=== PATIENT | female | born 1935 | race Caucasian/White ===

== ENCOUNTER 2016-07-16 08:06 | Inpatient (IN) | payer BC, OTHER ==
[2016-06-06 10:27] VITALS: BMI 25.0
--- NOTE | 2016-06-06 11:01 | PAT Medication Instructions ---
Service Date Jun 06, 2016. Current Home Medication List Aspirin Enteric Coated (Ecotrin Or Generic *), 81 MG PO QPM Cyclosporine (Ophth) (Restasis), 1 DROP OPB BID Diclofenac Sodium (Topical) (Voltaren 1% Top Gel), 1 DOSE TOP BID Escitalopram (Lexapro), 10 MG PO QAM Fish Oil ([place]-3), 1 CAP PO BID Ipratropium-Albuterol (Combivent Respimat), 1 PUFFS INH QID PRN for PRN Ipratropium-Albuterol (Duoneb), 1 TREATMENT INH Q6H PRN for RN Levothyroxine Sodium (Levothyroxine Sodium), 1 TAB PO QAM Metoprolol Tartrate (Lopressor) (Lopressor), 25 MG PO BID Multiple Vitamin (Multivitamin), 1 TAB PO QAM Simvastatin (Zocor), 40 MG PO HS Tolterodine Tartrate (Detrol LA), 1 CAP PO HS Medication Instructions For Your Scheduled Surgery - Hold the following medications 2 weeks prior to surgery: Fish Oil ([place]-3), 1 CAP PO BID - Hold the following medications the morning of surgery: Multiple Vitamin (Multivitamin), 1 TAB PO QAM Diclofenac Sodium (Topical) (Voltaren 1% Top Gel), 1 DOSE TOP BID - Take the following medications the morning of surgery with a sip of water OTHERWISE NOTHING TO EAT OR DRINK AFTER MIDNIGHT: Escitalopram (Lexapro), 10 MG PO QAM Metoprolol Tartrate (Lopressor) (Lopressor), 25 MG PO BID Cyclosporine (Ophth) (Restasis), 1 DROP OPB BID Levothyroxine Sodium (Levothyroxine Sodium), 1 TAB PO QAM Ipratropium-Albuterol (Combivent Respimat), 1 PUFFS INH QID PRN for PRN Ipratropium-Albuterol (Duoneb), 1 TREATMENT INH Q6H PRN for RN - Take the following medications as scheduled the night before surgery: Simvastatin (Zocor), 40 MG PO HS Aspirin Enteric Coated (Ecotrin Or Generic *), 81 MG PO QPM Tolterodine Tartrate (Detrol LA), 1 CAP PO HS Metoprolol Tartrate (Lopressor) (Lopressor), 25 MG PO BID Cyclosporine (Ophth) (Restasis), 1 DROP OPB BID Ipratropium-Albuterol (Combivent Respimat), 1 PUFFS INH QID PRN for PRN Ipratropium-Albuterol (Duoneb), 1 TREATMENT INH Q6H PRN for RN If you have any questions please call us at [phone] (Aimee Rodgers PA-C ) or [phone] or [phone]
[2016-06-06 11:25] LABS: BASO % 0.5 %; BASO ABS # 0.04 K/uL (0-0.2); COMPLETE YES; EOS % 1.8 %; HEMATOCRIT 37.6 % (37-47); IG% 0.5 %; LYMPH % 35.6 %; LYMPH ABS # 3.05 K/uL (1.2-3.4); MEAN CELL VOLUME 92.6 fL (80-100); MEAN CORPUSCULAR HEMOGLOBIN 30.5 pg (25-34); MEAN PLATELET VOLUME 9.4 fL (7.4-10.4); MONO % 11.3 %; NEUT % 50.3 %; PLATELET COUNT 329 K/uL (130-400); RED BLOOD COUNT 4.06 M/uL (4.2-5.4); WHITE BLOOD COUNT 8.57 K/uL (4.8-10.8)
[2016-06-06 11:37] LABS: INR 0.9 (0.9-1.1); PROTHROMBIN TIME (PATIENT) 10.1 SECONDS (9.0-12.0)
--- NOTE | 2016-06-06 11:44 | DIAGNOSTIC IMAGING REPORT ---
CHEST PREADMISSION(PA/LAT) CLINICAL HISTORY: Preoperative chest COMPARISON STUDY: 05/23/2016 FINDINGS: The heart is at the upper limits of normal in size. There is a large air-containing retrocardiac opacity consistent with a hiatal hernia. There is no focal pulmonary consolidation. There is no failure. There are no pleural effusions. There are few scattered chronic interstitial type opacities.[ IMPRESSION: Hiatal hernia. No acute findings. Electronically signed by: Rui Stewart M.D. 06/06/2016 11:43 AM
[2016-06-06 11:53] LABS: BUN/CREATININE RATIO 15.4 (10-20); CALCIUM 9.1 mg/dl (8.5-10.1); CREATININE 1.2 mg/dl (0.60-1.20); POTASSIUM 4.2 mmol/L (3.5-5.1)
[2016-06-06 12:28] LABS: URINE APPEARANCE CLEAR (CLEAR); URINE BILIRUBIN NEG (NEG); URINE COLOR YELLOW; URINE NITRITE NEG (NEG); URINE SPECIFIC GRAVITY 1.011 (1.000-1.030); UROBILINOGEN NEG (NEG)
[2016-06-06 12:34] LABS: MANUAL MICROSCOPIC REQUIRED? NO; REVIEW REQ? NO
--- NOTE | 2016-07-11 23:13 | HISTORY & PHYSICAL EXAMINATION ---
DATE OF ADMISSION: 07/16/2016 CHIEF COMPLAINT: Right knee pain, discomfort and instability. HISTORY OF PRESENT ILLNESS: The patient is an 80-year-old female, quite independent and lives by herself, who presents for surgical treatment of her right knee. She has got a long history of right knee pain and discomfort and describes it has just gotten worse over time. She initially responded to injections and these have become less successful over time. She has had several falls and her knee has become more valgus and unstable. Shots have become less effective and feels like her knee is going to give out and she did not actually fall and break her kneecap at one point. She would now like to proceed with surgical treatment. It is hindering her ability to maintain an independent and active lifestyle. PAST MEDICAL HISTORY: Significant for: 1. Elevated cholesterol. 2. Recent pneumonia, currently resolved. 3. Hypothyroidism. 4. Low back pain/sciatica. 5. Gastroesophageal reflux disease. 6. Hiatal hernia. PAST SURGICAL HISTORY: Includes: 1. Bilateral shoulder surgery. 2. Back surgery. 3. Cholecystectomy. 4. Hysterectomy. ALLERGIES: SULFA. CURRENT MEDICINES: Include: 1. Lexapro. 2. Restasis ophthalmic ointment. 3. Multivitamin. 4. Zostavax. 5. Fish oil. 6. Simvastatin. 7. Metoprolol. 8. Levothyroxine. 9. Tolterodine. SOCIAL HISTORY: This is an 80-year-old female. She lives by herself. Lives in [place]. Does not smoke. FAMILY HISTORY: Noncontributory. REVIEW OF SYSTEMS: Negative for diabetes, neurologic problems, vascular problems, bleeding disorders. Denies any chest pain or shortness of breath. No history of DVT or PE. She does have a history of recurrent urinary tract infections but her current urinalysis is negative. PHYSICAL EXAMINATION: GENERAL: Reveals a healthy, pleasant, thin elderly female. She looks younger than her stated age. HEENT: Benign. NECK: Supple, no lymphadenopathy. LUNGS: Clear to auscultation. HEART: Has a regular rate and rhythm. ABDOMEN: Soft, nontender, nondistended. EXTREMITIES: Grossly neurovascularly intact except as follows: Examination of the right knee reveals the patient walks independently. She does limp on the right side. When she weight bears, it goes into significant valgus. Range of motion is 5 degrees short of full extension to 120 degrees of flexion. She has a good straight leg raise. No pain with hip motion. X-RAYS: X-rays of the right knee were reviewed, showed advanced right knee DJD. She has complete loss of her lateral joint space. She has a significant valgus deformity. ASSESSMENT: An 80-year-old female with advanced right knee degenerative joint disease with valgus aligned knee and has developed progressive arthritic change and instability over time. It is not only painful but unstable. She would like to have her knee replaced. PLAN: We are going to take her to the operating room and do right total knee replacement. The risks and benefits of this procedure were explained to the patient including but not limited to DVT, PE, , infection, neurological injury, vascular injury, bleeding problem, pain, limited range of motion, stiffness, failure to relieve her symptoms, incomplete relief of symptoms, need for further surgery in the future, fracture, leg length inequality, nerve palsy, etc. The patient understands and desires to proceed, informed consent was obtained. Undoubtedly, we are going to have to do a lateral release to straighten her knee out. This does increase her risk of peroneal nerve palsy. It is very possible we might need to put a constrained insert in due to her MCL laxity. As far as discharge plans, she is planning to be discharged to [facility] as long as she qualifies. She will certainly need to go somewhere for rehab. She will take her metoprolol the morning of surgery along with the Synthroid.
[~2016-07-16] VITALS: Ht 157.5 cm; Wt 62.2 kg
[2016-07-16] VITALS (9 sets, daily range): BP systolic 105–146; BP diastolic 65–78; PULSE 64–77; TEMP 36.3–36.6; O2SAT 92–100; Ht 157.5 cm; Wt 62.2 kg
[~2016-07-16 08:06] MED LIST: ACETAMINOPHEN 500 MG TAB PO SCH; ASPEC81 PO; BUPIVACAINE 0.25% 30 ML VIAL ONE; BUPIVACAINE 0.5 % 5 MG/1 ML PF 10ML VIAL ONE; BUPIVACAINE LIPOSOME 266 MG, BUPIVACAINE/EPINEPHRINE INJ 50 ML, SODIUM CHLORIDE 0.9% PF... INFIL SCH; CEFAZOLIN 2000 MG/60 ML D5W 60 ML IV SCH; CYCL0.052 OPB; DICL1GEL12 TOP; DTRSR/2 PO; ESCI10TA17 PO; FAMOTIDINE 20 MG TAB PO SCH; FISHOIL PO; GABAPENTIN 300 MG CAP PO SCH; IPRA1AER2 INH; IPRASOL4 INH; LACTATED RINGER'S 1000ML 1,000 ML IV SCH; LACTATED RINGER'S 1000ML IV SCH; LEVO88TA3 PO; METO25TA56 PO; METOCLOPRAMIDE HCL 10 MG TAB PO SCH; MULTTAB58 PO; SCOPOLAMINE 1.5 MG TDSY TD SCH; SIMV40TA2 PO; TRANEXAMIC ACID INJ 1,000 MG in SODIUM CHLORIDE 0.9% 100ML 100 ML IV SCH
--- NOTE | 2016-07-16 09:12 | History & Physical Bridge Note ---
H&P Re-Evaluation Bridge Note: I have examined the patient, reviewed the History & Physical and in the interval since the performance of the History & Physical I have noted the following changes of clinical significance: No changes noted
[2016-07-16] MEDS ORDERED: ATROPINE SULFATE 0.1 MG/ML 5ML SYR IV PRN (10:45)
[2016-07-16] MEDS ORDERED: FENTANYL CITRATE INJ 50 MCG/1 ML 2 ML VIAL IV PRN (10:45)
[2016-07-16] MEDS ORDERED: LABETALOL HCL IV 5 MG/ML 20ML IV PRN (10:45)
[2016-07-16] MEDS ORDERED: ONDANSETRON INJ 2 MG/ML 2 ML VIAL IV PRN (10:45)
[2016-07-16] MEDS ORDERED: EpHEDrine SULFATE INJ 50 MG/ML AMP IV PRN (10:45)
[2016-07-16] MEDS ORDERED: MEPERIDINE HCL 25 MG/ML CARP IV PRN (10:45)
[2016-07-16] MEDS ORDERED: HYDROmorphone INJ 1 MG/ML SYR IV PRN (10:45)
[2016-07-16] MEDS ORDERED: MIDAZOLAM HCL 1 MG/ML 2ML VIAL ONE (11:37)
[2016-07-16] MEDS ORDERED: EpHEDrine SULFATE INJ 50 MG/ML AMP ONE (11:50)
[2016-07-16] MEDS ORDERED: LIDOCAINE HCL 2% 2 ML VIAL (20MG/ML) ONE (12:46)
[2016-07-16] MEDS ORDERED: PROPOFOL IV EMULSION 10 MG/ML 20 ML VIAL IV ONE (12:46)
[2016-07-16] MEDS ORDERED: BACITRACIN 50000 UNIT VIAL IR ONE (13:03)
--- NOTE | 2016-07-16 13:44 | [facility] Post Operative Brief Note ---
Immediate Operative Summary Operative Date Jul 16, 2016. Pre-Operative Diagnosis Right knee degenerative joint disease Post-Operative Diagnosis Right knee degenerative joint disease Procedure(s) Performed Right total knee arthroplasty Surgeon Dr. Luiz Briceño Lead Generation Specialist Surgeon(s) Waqar Vergara PA-C Estimated Blood Loss 50 cc Findings Right Knee DJD Fluids (cc crystalloids) 800 cc Specimens A. Right knee bone and tissue Drains None Anesthesia Spinal Complication(s) None Disposition Recovery Room / PACU
[2016-07-16] MEDS ORDERED: MoRPHine SULFATE 2 MG/ML CARP IV PRN (13:45)
[2016-07-16] MEDS ORDERED: MAGNESIUM HYDROXIDE SUSP 30 ML UDC PO PRN (13:45)
[2016-07-16] MEDS ORDERED: METOCLOPRAMIDE HCL INJ 5 MG/ML 2 ML VIAL IV PRN (13:45)
[2016-07-16] MEDS ORDERED: ALUMINUM/MAGNESIUM/SIMETH (MAALOX MAX) 30 ML UDC PO PRN (13:45)
[2016-07-16] MEDS ORDERED: ZOLPIDEM TARTRATE 5 MG TAB PO PRN (13:45)
[2016-07-16] MEDS ORDERED: BISACODYL 10 MG SUPP PR PRN (13:45)
[2016-07-16] MEDS ORDERED: DiphenhydrAMINE HCL 50 MG/ML VIAL IV PRN (13:45)
--- NOTE | 2016-07-16 14:21 | Anesthesiology Progress Note ---
Anesthesia Post Op Note Date & Time Jul 16, 2016 at 14:21 Vital Signs Pain Intensity: 0 Vital Signs Past 12 Hours Date Time Temp Pulse Resp B/P Pulse Ox O2 Delivery O2 Flow Rate FiO2 07/16/16 14:15 76 19 121/51 97 Nasal Cannula 2 07/16/16 14:05 76 16 123/53 97 Nasal Cannula 2 07/16/16 13:55 36.7 81 20 118/47 97 Nasal Cannula 2 07/16/16 08:54 36.5 64 18 146/68 96 Room Air Notes Mental Status: alert / awake / arousable, participated in evaluation Pt Amnestic to Procedure: Yes Nausea / Vomiting: adequately controlled Pain: adequately controlled Airway Patency, RR, SpO2: stable & adequate BP & HR: stable & adequate Hydration State: stable & adequate Neuraxial Anesthesia: was administered, sensory block is resolving Anesthetic Complications: no major complications apparent
--- NOTE | 2016-07-16 14:38 | DIAGNOSTIC IMAGING REPORT ---
RIGHT KNEE 1 OR 2 VIEWS ROUTINE CLINICAL HISTORY: AP/LATERAL IN PACU RIGHT KNEE Right postoperative evaluation COMPARISON: None. DISCUSSION: Status post total right knee replacement. Good contact between prosthetic and underlying bone. Expected soft tissue postoperative change. IMPRESSION: Anatomic alignment status post total right knee replacement. Electronically signed by: Hernando Rojas M.D. 07/16/2016 2:37 PM Dictated Date/Time: 07/16/2016 2:36 PM
--- NOTE | 2016-07-16 15:46 | OPERATIVE REPORT ---
DATE OF OPERATION: 07/16/2016 PREOPERATIVE DIAGNOSIS: Right knee degenerative joint disease. POSTOPERATIVE DIAGNOSIS: Same. PROCEDURE PERFORMED: Right cemented posterior stabilized total knee arthroplasty. SURGEON: Luiz Briceño M.D. HEREDITARY CANCER PROGRAM COORDINATOR: Waqar Vergara PA-C. COMPLICATIONS: None. ESTIMATED BLOOD LOSS: 50 mL. FLUID REPLACEMENT: 800 mL crystalloid fluid replacement. TOURNIQUET TIME: 66 minutes at 300 mmHg. ANESTHESIA: Spinal with adductor canal block. DRAINS: None. SPECIMENS: Right knee sent for pathology. OPERATIVE INDICATIONS: The patient is an 80-year-old female who has had a long history of right knee pain, discomfort and progressive deformity. She has been through extensive conservative treatment over the past 10 years. She failed this over time. She had more and more trouble getting around. Her knee has become unstable due to the valgus nature. The patient elected to proceed with total knee arthroplasty. Of note, the patient did report a question of metal allergy/nickel allergy, so we elected to use the Morales \T\ Nephew zirconium total knee arthroplasty. OPERATIVE FINDINGS: Operative findings revealed advanced right knee DJD. She had grade 3 [id number] disease in all 3 compartments, most severe in the lateral side. She had eburnation of the lateral femoral condyle. She had malrotated distal femur. She had a dysplastic lateral femoral condyle. She had severe eburnation of the lateral tibial plateau. OPERATIVE IMPLANTS: Operative implants consisted of: 1. Morales [employer] Nephew Journey II Zirconium size 6 posterior stabilized femoral component. 2. Morales [employer] Nephew size 4 tibial tray. 3. A 12 mm posterior stabilized polyethylene insert. 4. A 32 x 9 all poly patella. OPERATIVE PROCEDURE: The patient taken to the operating room, identified and placed on the operating table in supine position. All contact areas were appropriately padded. IV antibiotics were provided by the anesthesia team. A Chin catheter was placed in sterile fashion. A right thigh tourniquet was then placed. The right lower extremity was then prepped and draped in usual sterile fashion. The right leg was elevated and exsanguinated with Esmarch and tourniquet was placed at 300 mmHg. An anterior approach to the right knee was then performed through a longitudinal incision centered over the patella. Sharp dissection was carried through the subcutaneous tissues down to the level of the extensor mechanism. A medial parapatellar arthrotomy incision was made. Some subperiosteal dissection was carried out medially. The fat pad was resected from beneath the patellar tendon. The lateral patellofemoral ligament was released. The patella was everted and the knee was flexed. The osteophytes were taken off the distal femur. Her ACL was chronically absent. Her tibia was subluxated anteriorly. The external tibial alignment jig was then placed in the anterior face of the tibia and adjusted 8 mm medially. Proximal tibial cut was made to remove about 2-3 mm of bone from the medial side. Tibia was sized to a size 4. Attention was then drawn to the femur. The distal femur was entered with a sharp drill bit. Intramedullary canal was suctioned. A right 5 degree valgus cutting guide was placed. Distal femoral cutting block was pinned in place. We did eventually adjust the distal femoral cutting block to take an additional 4 mm off the distal femur as it was not taking hardly any bone off the lateral femoral condyle and cut to the base of the intercondylar notch area. Distal femoral cut was made. I brought the knee out in extension. I did do just a little bit pie crusting of the IT band and the posterolateral capsule, taking great care to protect the peroneal nerve at all times. Her lateral side was not excessively tight. The knee was then flexed. The femur was then sized to a size 6. We did downsize this slightly. The AP cutting block was pinned parallel to the epicondylar axis, which was 6 degrees of external rotation. The anterior cut, anterior cord cut, posterior cut, posterior chamfer cut, anterior chamfer cuts were then made. The knee was flexed. The remnants of the medial and lateral meniscus were excised. The osteophytes were taken off the posterior aspect of the femur. A trial femoral component was then placed. The box was created for the box of the femoral component. Trochlear component was placed. Tibial tray was pinned in maximum external rotation and the punch was used for the tibial tray. We then trialed the knee and the 12 mm insert fit most appropriately. Attention was then drawn to the patella. The patella was cleaned of all soft tissues. Patellar thickness measured 24 mm and was cut down to about 15. I wanted to leave this a little thick as her bone was pretty soft. It was sized to a size 32 patella. The lug holes were drilled for a 32 patella. Lateral osteophyte was removed. Patella button was placed. Knee was taken through range of motion and patella tracked nicely with no thumbs test. Attention was then drawn toward placement of the permanent components. All trial components were removed. A bone plug was placed in the distal femur to limit blood loss. A double batch of Palacos G cement was mixed. A right size 6 posterior stabilized femoral component was then placed followed by a size 4 tibial tray, 12 mm posterior stabilized polyethylene insert, and a 32/9 all poly patella. The knee was brought out into full extension until cement hardened. A final cement check was then performed. The pericapsular tissues were injected 100 mL of a combination of 20 mL of Exparel, 30 mL of normal saline, 50 mL of 0.25% Marcaine with epinephrine. The patient did receive 1 gram of tranexamic acid. The tourniquet was then let down for final tourniquet time of 66 minutes. Hemostasis was assured with use of electrocautery. The wound was once again irrigated. The extensor mechanism was then closed with a combination of #1 PDS suture and #1 Vicryl suture in a [id number] fashion. Extensor mechanism was checked and found to be intact. Subcutaneous tissues were then closed with 2-0 Dexon suture in a buried interrupted fashion. Skin was closed skin bautista. Leg was then cleaned and dried and a sterile dressing with Xeroform, 4 x 4, sterile cast padding and Yuri bandage were applied. The patient then transferred to the recovery room in stable condition. The patient tolerated the procedure well with no complications. All needle and sponge counts were correct at the end of the operation. I attest to the content of the Intraoperative Record and any orders documented therein. Any exceptions are noted below. MTDD
--- NOTE | 2016-07-16 15:48 | Medical Consult ---
Consultation Date of Consultation: Jul 16, 2016. Attending Physician: Luiz Briceño M.D. Reason for Consultation: Postoperative medical management History of Present Illness The patient is an 80-year-old female who underwent right total knee arthroplasty by Dr. Briceño earlier in the day. Seen postoperatively she has no complaints. Her pain is adequately managed, and she does feel she's ready to eat. Past Medical/Surgical History Medical Problems: (1) Failure of outpatient treatment Status: Acute Family History Patient reports no known family medical history. Social History Smoking Status: Never Smoker Smokeless Tobacco Use: No Alcohol Use: none Drug Use: none Marital Status: Housing Status: lives alone Occupation Status: retired Allergies Coded Allergies: Sulfa Antibiotics (Verified Allergy, Unknown, UNKNOWN, 07/16/16) Current Inpatient Medications Current Inpatient Medications Medications (Trade) Dose Ordered Sig/Michelle Route Start Time Stop Time Status Last Admin Dose Admin Lactated Ringer's 1,000 ml @ 60 mls/hr [id number] IV 07/16/16 06:00 07/16/16 22:39 07/16/16 09:25 60 MLS/HR Cefazolin Sodium (Ancef 2000mg/60 ml D5W) 60 ml @ 100 mls/hr PREOP IV 07/16/16 06:00 07/16/16 18:00 07/16/16 11:59 100 MLS/HR Acetaminophen 1000 mg 1,000 mg PREOP PO 07/16/16 06:00 07/16/16 18:00 07/16/16 09:10 1,000 MG Bupivacaine Liposome/ Bupivacaine HCl/ Epinephrine Bitart/Sodium Chloride/Syringe (Exparel/ BUPIVACAINE/ EPINEPHRINE 0.25% Inj/Sodium Chloride 0.9% Pf Inj/Syringe) 100 ml @ 0 mls/hr 06 INFIL 07/16/16 06:00 07/16/16 18:00 07/16/16 13:03 100 MLS/HR Famotidine (Pepcid Tab) 20 mg PREOP PO 07/16/16 06:00 07/16/16 18:00 07/16/16 09:10 20 MG Gabapentin (Neurontin Cap) 300 mg PREOP PO 07/16/16 06:00 07/16/16 18:00 07/16/16 09:09 300 MG Metoclopramide HCl (Reglan Tab) 10 mg PREOP PO 07/16/16 06:00 07/16/16 18:00 07/16/16 09:10 10 MG Miscellaneous (Remove Transderm-Scop Patch) 1 ea Q72H N/A 07/19/16 06:00 07/19/16 06:01 Miscellaneous Information 1 ea 1 ea QS N/A 07/16/16 16:00 07/18/16 05:59 Tranexamic Acid 1000 mg/Sodium Chloride 110 ml @ 660 mls/hr TODAY@0630 IV 07/16/16 06:30 07/16/16 18:00 Lactated Ringer's (Lr 1000ml) 1,000 ml @ 15 mls/hr Q24H IV 07/16/16 06:00 07/17/16 05:59 Fentanyl Citrate (Fentanyl Inj) 50 mcg Q5M PRN IV 07/16/16 10:45 07/16/16 15:45 Hydromorphone HCl (Dilaudid Inj) 0.5 mg Q5M PRN IV 07/16/16 10:45 07/16/16 15:45 Meperidine HCl (Demerol Inj) 25 mg Q5M PRN IV 07/16/16 10:45 07/16/16 15:45 Ondansetron HCl (Zofran Inj) 4 mg ONE PRN IV 07/16/16 10:45 07/16/16 15:45 Labetalol HCl (Normodyne IV) 5 mg Q5M PRN IV 07/16/16 10:45 07/16/16 15:45 Ephedrine Sulfate (EpHEDrine SULFATE INJ) 5 mg Q5M PRN IV 07/16/16 10:45 07/16/16 15:45 Atropine Sulfate 0.5 mg 0.5 mg Q1M PRN IV 07/16/16 10:45 07/16/16 15:45 Potassium Chloride/Dextrose/ Sod Cl 1,000 ml @ 100 mls/hr Q10H IV 07/16/16 15:00 07/17/16 14:59 Cefazolin Sodium/ Dextrose (Ancef Iv/D5 50ml) 55 ml @ 100 mls/hr Q8H IV 07/16/16 20:00 07/17/16 04:32 Morphine Sulfate (MoRPHine SULFATE INJ) 2 mg Q1H PRN IV 07/16/16 13:45 07/30/16 13:44 Acetaminophen (Tylenol Tab) 1,000 mg Q8H PO 07/16/16 18:00 08/15/16 17:59 Magnesium Hydroxide (Milk Of Magnesia Susp) 30 ml Q6H PRN PO 07/16/16 13:45 08/15/16 13:44 Bisacodyl (Dulcolax Supp) 10 mg DAILY PRN MS 07/16/16 13:45 08/15/16 13:44 Docusate Sodium (coLACE CAP) 100 mg BID PO 07/16/16 21:00 08/15/16 20:59 Diphenhydramine HCl (Benadryl Cap) 25 mg Q8H PRN PO 07/16/16 13:45 08/15/16 13:44 Diphenhydramine HCl (Benadryl Inj) 25 mg Q8H PRN IV 07/16/16 13:45 08/15/16 13:44 Al Hydrox/Mg Hydrox/Simethicone (Maalox Max Susp) 15 ml Q4H PRN PO 07/16/16 13:45 08/15/16 13:44 Zolpidem Tartrate (Ambien Tab) 5 mg HSZ PRN PO 07/16/16 13:45 08/15/16 13:44 Multivitamins (Multivitamin Tab) 1 tab QAM PO 07/17/16 09:00 08/16/16 08:59 Ondansetron HCl (Zofran Inj) 4 mg Q6H PRN IV 07/16/16 13:45 08/15/16 13:44 Metoclopramide HCl (Reglan Inj) 10 mg Q6H PRN IV 07/16/16 13:45 08/15/16 13:44 Ferrous Gluconate (Ferrous Gluconate Tab) 324 mg TIDM PO 07/16/16 17:45 08/15/16 17:59 Pantoprazole Sodium (Protonix Tab) 40 mg QAM PO 07/17/16 09:00 08/16/16 08:59 Aspirin (Ecotrin Tab) 325 mg BID PO 07/16/16 21:00 08/15/16 20:59 Tramadol HCl 1 tablet for pain rating... Q4H PRN PO 07/16/16 13:45 08/15/16 13:44 Tranexamic Acid/ Sodium Chloride (Cyklokapron Inj/ Nss 100ml) 110 ml @ 660 mls/hr Q6H IV 07/16/16 20:00 07/16/16 20:09 Ketorolac Tromethamine (Toradol Inj) 15 mg Q6H IV. 07/16/16 16:00 07/18/16 15:59 Escitalopram Oxalate (Lexapro Tab) 10 mg QAM PO 07/17/16 09:00 08/16/16 08:59 Levothyroxine Sodium (Synthroid Tab) 88 mcg DAILYBB PO 07/17/16 06:00 08/16/16 05:59 Metoprolol Tartrate (Lopressor Tab) 25 mg BID PO 07/16/16 21:00 08/15/16 20:59 Simvastatin (Zocor Tab) 40 mg HS PO 07/16/16 21:00 08/15/16 20:59 Tolterodine Tartrate (Detrol LA Cap) 2 mg HS PO 07/16/16 21:00 08/15/16 20:59 Miscellaneous Information (Order Awaiting Action) 1 ea QS N/A 07/16/16 16:00 08/15/16 15:59 Review of Systems The patient denies chest pain, palpitations, shortness of breath, cough, vision change, hearing change, sore throat, fevers, chills, sweats, nausea, vomiting, abdominal pain, pelvic pain, blood in urine or stool, dysuria, urinary frequency or urgency, lightheadedness, dizziness, headache, memory loss , rash, night sweats, or allergy symptoms. The review of systems is otherwise negative other than for that already noted above, and at least 10 systems have been reviewed. Physical Exam Date Time Temp Pulse Resp B/P Pulse Ox O2 Delivery O2 Flow Rate FiO2 07/16/16 15:34 36.5 66 16 123/78 100 Nasal Cannula 2.0 07/16/16 15:05 36.5 69 16 114/74 98 Nasal Cannula 2.0 07/16/16 14:35 92 Nasal Cannula 2.0 07/16/16 14:35 36.6 77 18 110/67 92 Nasal Cannula 2.0 07/16/16 14:35 Nasal Cannula 2.0 07/16/16 14:25 37.3 76 15 118/50 97 Nasal Cannula 2 07/16/16 14:15 76 19 121/51 97 Nasal Cannula 2 07/16/16 14:05 76 16 123/53 97 Nasal Cannula 2 07/16/16 13:55 36.7 81 20 118/47 97 Nasal Cannula 2 07/16/16 08:54 36.5 64 18 146/68 96 Room Air The patient is awake, well-developed and adequately nourished, alert and oriented 3, normocephalic and atraumatic, lying in bed and in no acute distress. HEENT--PERRL, EOMI, mucous membranes and oropharynx moist. Neck--supple, no JVD or bruits, thyroid normal, trachea midline, no adenopathy. Heart--normal S1 and S2, no extra beats, no murmurs, rubs or gallops. Lungs--clear bilaterally with good air movement, no respiratory distress, no accessory muscle use. Abdomen--normal bowel sounds and soft, nontender and nondistended, no hernias or masses, no organomegaly. Extremities--no cyanosis, clubbing or edema. There are good distal pulses b/l. Dermatologic--normal skin turgor, normal color, warm and dry, no abnormal lymph nodes, no rash. Neurologic--cranial nerves II through XII grossly intact, motor and sensory examination normal. Rheumatologic--right knee wrapped. Psychiatric--normal affect. Assessment & Plan Status post right total knee arthroplasty--medically stable. Hypertension--continue metoprolol tartrate 25 mg by mouth twice a day with hold parameters, enteric-coated aspirin 81 mg by mouth daily. Hypothyroidism--continue levothyroxine sodium 80 g by mouth daily. Hypercholesterolemia--continue simvastatin 40 mg by mouth at bedtime. Bladder spasm--continue Detrol LA 2 mg by mouth at bedtime. Depression--continue Lexapro 10 mg by mouth every morning. Dry eye--continue Restasis 1 drop OPB twice a day.
[2016-07-16] MEDS: KETOROLAC TROMETHAMINE 15 MG/ML VIAL IV. SCH ×2 (15:59→22:17)
[2016-07-16] MEDS: RESTASIS-ORDER AWAITING ACTION SCH (16:00)
[2016-07-16] MEDS: CHECK SCOPOLAMINE PATCH PLACEMENT SCH (16:00)
[2016-07-16] MEDS: D5W AND 1/2NSS + 20MEQ KCL 1,000 ML IV SCH (16:01)
[2016-07-16] MEDS: FERROUS GLUCONATE 324 MG TAB PO SCH (17:46)
[2016-07-16] MEDS: ACETAMINOPHEN 500 MG TAB PO SCH (17:47)
--- NOTE | 2016-07-16 18:38 | PROGRESS NOTE ---
DATE: 07/16/2016 SUBJECTIVE: An 80-year-old white female postop from a right knee replacement. She is doing well. She does not have any pain yet. No chest pain or shortness of breath. Not feeling dizzy or lightheaded. No nausea. OBJECTIVE: VITAL SIGNS: Temperature 36.6. Vital signs stable. GENERAL: Reveals a pleasant, elderly female. She is sitting up in bed and looks comfortable. She is talking with her family. LUNGS: Clear to auscultation. HEART: Regular rate and rhythm. ABDOMEN: Soft, nontender, nondistended. EXTREMITIES: Grossly neurovascularly intact except as follows: Examination of right lower extremity reveals the leg to be well aligned. She can dorsiflex and plantarflex her foot appropriately. She is neurologically intact. She has got brisk refill. X-RAYS: X-rays of the right knee from recovery room were reviewed. It shows a cemented posterior stabilized total knee arthroplasty. Components looked to be in good position. No signs of problems. ASSESSMENT: An 80-year-old female postop from a right knee replacement, doing well. Her pain is controlled. She is neurologically intact. PLAN: 1. DVT prophylaxis including thigh-high TEDs, SCDs, and aspirin twice a day. 2. PT/OT. Weightbearing as tolerated. Right total knee protocol. 3. Pain control. Doing well with current pain regimen. We are going to try and limit narcotics to avoid confusion. 4. IV antibiotics x 24 hours. 5. Disposition: She is hoping to be discharged to [facility] for a brief rehab stay once medically stable.
[2016-07-16] MEDS: CEFAZOLIN IV 1,000 MG in DEXTROSE 5% 50ML 50 ML IV SCH (19:36)
[2016-07-16] MEDS ORDERED: TRANEXAMIC ACID INJ 1,000 MG in SODIUM CHLORIDE 0.9% 100ML 100 ML IV SCH (20:00)
[2016-07-16] MEDS: ASPIRIN 325 MG ECTAB PO SCH (21:14)
[2016-07-16] MEDS: DOCUSATE SODIUM 100 MG CAP PO SCH (21:14)
[2016-07-16] MEDS: TOLTERODINE TARTRATE LA 2 MG CAPCR PO SCH (21:15)
[2016-07-16] MEDS: METOPROLOL TARTRATE 25 MG TAB PO SCH (21:15)
[2016-07-16] MEDS: SIMVASTATIN 40 MG TAB PO SCH (21:15)
[2016-07-17] MEDS: CHECK SCOPOLAMINE PATCH PLACEMENT SCH ×3 (00:28→16:00)
[2016-07-17] MEDS: D5W AND 1/2NSS + 20MEQ KCL 1,000 ML IV SCH ×2 (02:18→10:53)
[2016-07-17] MEDS: ACETAMINOPHEN 500 MG TAB PO SCH ×3 (02:18→17:37)
[2016-07-17 03:23] VITALS: BP 107/67; PULSE 65; TEMP 36.5; O2SAT 96
[2016-07-17] MEDS: KETOROLAC TROMETHAMINE 15 MG/ML VIAL IV. SCH (04:29)
[2016-07-17] MEDS: CEFAZOLIN IV 1,000 MG in DEXTROSE 5% 50ML 50 ML IV SCH (04:29)
[2016-07-17 05:48] LABS: HEMATOCRIT 31.2 % (37-47); MEAN CELL VOLUME 91.5 fL (80-100); MEAN CORPUSCULAR HEMOGLOBIN 30.2 pg (25-34); MEAN PLATELET VOLUME 9.5 fL (7.4-10.4); PLATELET COUNT 208 K/uL (130-400); RED BLOOD COUNT 3.41 M/uL (4.2-5.4); WHITE BLOOD COUNT 7.29 K/uL (4.8-10.8)
[2016-07-17] MEDS: LEVOTHYROXINE 88 MCG TAB PO SCH (06:01)
[2016-07-17 06:15] LABS: BUN/CREATININE RATIO 16.7 (10-20); CALCIUM 7.6 mg/dl (8.5-10.1); CREATININE 1.5 mg/dl (0.60-1.20); POTASSIUM 4.2 mmol/L (3.5-5.1)
[2016-07-17 07:21] VITALS: BP 113/64; PULSE 67; TEMP 36.5; O2SAT 95
[2016-07-17] MEDS: RESTASIS-ORDER AWAITING ACTION SCH ×3 (08:00→16:00)
[2016-07-17] MEDS: TRAMADOL HCL 50 MG TAB PO PRN ×4 (08:32→20:49)
[2016-07-17] MEDS: MULTIVITAMIN TAB PO SCH (08:33)
[2016-07-17] MEDS: FERROUS GLUCONATE 324 MG TAB PO SCH ×3 (08:34→16:47)
[2016-07-17] MEDS: ASPIRIN 325 MG ECTAB PO SCH ×2 (08:34→20:48)
[2016-07-17] MEDS: ESCITALOPRAM OXALATE 10 MG TAB PO SCH (08:34)
[2016-07-17] MEDS: DOCUSATE SODIUM 100 MG CAP PO SCH ×2 (08:34→20:48)
[2016-07-17] MEDS: PANTOprazole SOD 40 MG TAB PO SCH (08:34)
[2016-07-17] MEDS: METOPROLOL TARTRATE 25 MG TAB PO SCH ×2 (08:35→20:49)
[2016-07-17] MEDS: SODIUM CHLORIDE 0.9% 1000ML 1,000 ML IV SCH ×2 (08:41→20:49)
[2016-07-17] MEDS ORDERED: MULTIVITAMIN TAB PO SCH (09:00)
--- NOTE | 2016-07-17 11:28 | Hospitalist Progress Note ---
Hospitalist Progress Note Date of Service Jul 17, 2016. (Brunilda Arroyo PA-C) Subjective Pt evaluation today including: conversation w/ patient, physical exam, chart review, lab review, review of inpatient medication list Patient reports mild to moderate pain in the knee. Has no other complaints. Urinating without difficulty or pain. Has not yet passed gas. No bowel movements yet. No chest pain, shortness of breath, heart palpitations or dizziness. Additional Comments: 6 system review negative. Please see pertinent positives in the history of present illness section. (Brunilda Arroyo PA-C) Objective Vital Signs Date Time Temp Pulse Resp B/P Pulse Ox O2 Delivery O2 Flow Rate FiO2 07/17/16 07:21 36.5 67 16 113/64 95 Room Air 07/17/16 07:15 Room Air 07/17/16 03:23 36.5 65 16 107/67 96 Room Air 07/17/16 00:30 Room Air 07/16/16 23:28 36.5 69 16 110/67 95 Room Air 07/16/16 19:00 36.3 70 16 107/66 98 Room Air 07/16/16 17:34 69 16 105/65 96 Room Air 07/16/16 16:35 36.6 71 16 111/68 97 Nasal Cannula 2.0 07/16/16 15:34 36.5 66 16 123/78 100 Nasal Cannula 2.0 07/16/16 15:30 100 Nasal Cannula 2.0 07/16/16 15:05 36.5 69 16 114/74 98 Nasal Cannula 2.0 07/16/16 14:35 92 Nasal Cannula 2.0 07/16/16 14:35 36.6 77 18 110/67 92 Nasal Cannula 2.0 07/16/16 14:35 Nasal Cannula 2.0 07/16/16 14:25 37.3 76 15 118/50 97 Nasal Cannula 2 07/16/16 14:15 76 19 121/51 97 Nasal Cannula 2 07/16/16 14:05 76 16 123/53 97 Nasal Cannula 2 07/16/16 13:55 36.7 81 20 118/47 97 Nasal Cannula 2 (Brunilda Arroyo PA-C) Physical Exam General Appearance: no apparent distress Eyes: EOMI Neck: no JVD Respiratory/Chest: lungs clear Cardiovascular: regular rate, rhythm Abdomen: normal bowel sounds, non tender, soft Extremities: no pedal edema (no edema noted in the left lower extremity. Right lower extremity bandaged.) Neurologic/Psychiatric: oriented x 3, + pertinent finding (left facial droop noted) Skin: warm/dry (Brunilda Arroyo PA-C) Laboratory Results Last 24 Hours Test 07/17/16 05:24 White Blood Count 7.29 K/uL Red Blood Count 3.41 M/uL Hemoglobin 10.3 g/dL Hematocrit 31.2 % Mean Corpuscular Volume 91.5 fL Mean Corpuscular Hemoglobin 30.2 pg Mean Corpuscular Hemoglobin Concent 33.0 g/dl RDW Standard Deviation 49.1 fL RDW Coefficient of Variation 14.7 % Platelet Count 208 K/uL Mean Platelet Volume 9.5 fL Sodium Level 143 mmol/L Potassium Level 4.2 mmol/L Chloride Level 109 mmol/L Carbon Dioxide Level 25 mmol/L Anion Gap 9.0 mmol/L Blood Urea Nitrogen 25 mg/dl Creatinine 1.50 mg/dl Est Creatinine Clear Calc Drug Dose 25.1 ml/min Estimated GFR () 37.2 Estimated GFR (Non- 32.1 BUN/Creatinine Ratio 16.7 Random Glucose 107 mg/dl Calcium Level 7.6 mg/dl (Brunilda Arroyo PA-C) Assessment and Plan 80-year-old female status post right TKA-postop day #1 -pain management, DVT prophylaxis, PT per primary team Mild acute renal insufficiency-likely secondary to dehydration -change IVF to NS @ 80 cc/hr x 1.5 liters -check UA -PRP in am Hypertension -Continue Lopressor 25 mg twice daily Urinary incontinence -Continue Detrol 2 mg at night Hyperlipidemia -Continue Zocor 40 mg at night Hypothyroidism -Continue Synthroid 88 g daily Depression -Continue Lexapro 10 mg in the morning History of Velásquez's palsy-facial droop noted. Chronic Thank you for allowing us to participate in Ms. Heck's care. (Brunilda Arroyo PA-C) Patient seen and examined. Case was discussed with Brunilda Arroyo PA-C. I agree with her note above. Patient has no complaints. On exam, lungs clear and heart regular. Cr up slightly, possibly from NSAID or very mild hypovolemia. Will hydrate overnight and recheck BMP in morning. (Ang Coleman MD)
[2016-07-17 11:50] VITALS: BP 121/76; PULSE 72; TEMP 36.5; O2SAT 96
[2016-07-17] MEDS ORDERED: ACET-1138 PO (11:55)
[2016-07-17] MEDS ORDERED: ASPEC325 PO (11:55)
[2016-07-17] MEDS ORDERED: FRRG PO (11:55)
[2016-07-17] MEDS ORDERED: ULT50X PO (11:55)
--- NOTE | 2016-07-17 11:57 | Discharge Instructions ---
Discharge Instructions Admission Reason for Admission: Right Knee Osteoarthritis Discharge Discharge Diagnosis / Problem: Right Knee Replacement Discharge Goals Goal(s): Decrease discomfort, Improve function, Increase independence, Improve disease control, Therapeutic intervention Activity Recommendations Activity Level: Assistance Required Therapies: Physical Therapy, Occupational Therapy Weightbearing Status: Right weightbearing . Additional Information Patient informed of condition: Yes Advance Directives: No DNR: No Level of Care: Acute Rehab Communicable Disease: No Prognosis: Improving Instructions / Follow-Up Instructions / Follow-Up ACTIVITY RECOMMENDATIONS: Physical Therapy: * You will go to physical therapy three times each week for four to six weeks after your surgery in order to regain your knee range of motion and to retrain your knee to work properly. * It is just as important to make sure you are getting your knee perfectly straight as it is to regain your knee bend. * Taking a pain pill an hour before therapy can help you have a more productive and comfortable therapy session. Home Exercise: * You were shown a series of exercises (heel props, heel slides, etc.) in the hospital. Do these exercises three to four times each day including the exercises you were shown in physical therapy. Walking: * Get up and walk several times each day. For the first four weeks, try not to stand or walk for more than one hour at a time. If you do stand or walk for more than one hour, you will not hurt anything, but your knee and leg will likely swell. * As you feel comfortable, you may change from the walker or crutches to a cane and then to independent walking. MEDICATIONS: New Medicine: * You will likely be taking one or more of these medications: 1. Tramadol - A quick and shorter-acting pain medication. Take one to two tablets every four to six hours to lessen your pain. 2. Iron Sulfate - Take three times each day for the month after surgery to help you replace the blood lost during surgery. 3. Aspirin - Thins your blood to lessen the chance of forming a blood clot. * The most common side effects of pain medicine and iron are nausea and constipation. If nausea or constipation is too much of a problem or if you have any questions about your new medicines or doses, call [facility] at . We will try to help you manage these issues. VERY IMPORTANT TO READ AND REVIEW" Pain: * The immediate post-operative period after knee replacement surgery is often quite painful. * You are given a prescription for pain medicine. You should take it, as directed, when you need it, especially before physical therapy and before going to bed. Pain that interferes with sleep is very common and can last several months. * You will likely need pain medicine for the first four to six weeks. It will not stop all of the pain. The pain will lessen and as you feel better, you may change to milder pain medicine such as Tylenol. * The most common side effects of pain medicine are nausea and constipation, so don't take more than you need. SPECIAL CARE INSTRUCTIONS: TEDs/Elastic Stockings: * The white elastic stockings help limit swelling and prevent blood clots from forming in your legs. The more you wear them, the more they work. * Wear them for six weeks after knee replacement surgery and four weeks after partial knee replacement. Prevention of Infection: * Take antibiotics one hour before any dental cleaning, dental work, urological procedure, gastrointestinal procedure or any invasive surgery in order to prevent your new joint from getting infected. * You may get the antibiotics from the doctor performing the procedure or you may call our office at before and we will call in a prescription to the pharmacy of your choice. Things to Watch For: * Drainage from the incision site that occurs more than one week after your surgery. * Severely increased knee/leg pain or swelling. * Increased redness at the incision site. * Fever above 102 degrees Fahrenheit. * Unusual chest pain or shortness of breath. * Unusual pain or burning with urination. Call [facility] at with any of the above problems or if you have any questions about your medicines or recovery. FOLLOW UP VISIT: Make an appointment to see your doctor for approximately two weeks after surgery for a progress check and staple removal by calling the office at . Current Hospital Diet Patient's current hospital diet: Regular Diet Discharge Diet Recommended Diet: Regular Diet Procedures Procedures Performed: Right total knee arthroplasty Pending Studies Studies pending at discharge: no Medical Emergencies . Who to Call and When: Medical Emergencies: If at any time you feel your situation is an emergency, please call [phone] immediately. . Non-Emergent Contact Non-Emergency issues call your: Surgeon . . "Provider Documentation" section prepared by Luiz Briceño. Core Measure Problem Core Measures: None
[2016-07-17 12:03] LABS: URINE APPEARANCE CLEAR (CLEAR); URINE BILIRUBIN NEG (NEG); URINE COLOR YELLOW; URINE EPITHELIAL CELL AUTO >30 /lpf (0-5); URINE NITRITE NEG (NEG); URINE SPECIFIC GRAVITY 1.013 (1.000-1.030); UROBILINOGEN NEG (NEG)
[2016-07-17 12:17] LABS: MANUAL MICROSCOPIC REQUIRED? NO; REVIEW REQ? NO
--- NOTE | 2016-07-17 12:29 | PROGRESS NOTE ---
DATE: 07/17/2016 DATE: 07/17/2016. SUBJECTIVE: This 80-year-old white female postop day 1 from a right knee replacement. She is doing well. Pain is controlled. No chest pain or shortness of breath. Not feeling dizzy or lightheaded. OBJECTIVE: VITAL SIGNS: Temperature 36.5. Vital signs stable. PHYSICAL EXAMINATION: GENERAL: Reveals a healthy pleasant elderly female. She is lying in bed and looks quite comfortable. LUNGS: Clear to auscultation. HEART: Regular rate and rhythm. ABDOMEN: Soft, nontender, nondistended. EXTREMITY EXAMINATION: Grossly neurovascularly intact except as follows: Examination of the right lower extremity reveals the leg to be well aligned. Dressing is clean, dry and intact. She can dorsiflex and plantarflex her foot appropriately. She is neurologically intact. LABORATORY DATA: Hemoglobin 10.3, hematocrit 31.2. Electrolytes are relatively stable. Creatinine is elevated at 1.50. ASSESSMENT: An 80-year-old female postop day 1 from a right total knee replacement, doing pretty well. Pain is controlled. Creatinine is slightly elevated. We are going to stop her Toradol. PLAN: 1. DVT prophylaxis including thigh-high TEDs, SCDs, and aspirin twice a day. 2. PT/OT. Weightbearing as tolerated. Right total knee protocol. 3. Pain control. Doing pretty well with current pain regimen. We are going to stop her Toradol due to her elevated creatinine and we will follow this along. I will continue to use Tylenol and tramadol if needed. 4. Disposition. She is hoping to be discharged to [facility] for a brief rehab stay once stable.
--- NOTE | 2016-07-17 13:54 | Anesthesiology Progress Note ---
Anesthesia Post Op Note Date & Time Jul 17, 2016 at 13:53 Vital Signs Pain Intensity: 5.0 Vital Signs Past 12 Hours Date Time Temp Pulse Resp B/P Pulse Ox O2 Delivery O2 Flow Rate FiO2 07/17/16 11:50 36.5 72 16 121/76 96 Room Air 07/17/16 07:21 36.5 67 16 113/64 95 Room Air 07/17/16 07:15 Room Air 07/17/16 03:23 36.5 65 16 107/67 96 Room Air Notes Mental Status: alert / awake / arousable, participated in evaluation Pt Amnestic to Procedure: Yes Nausea / Vomiting: adequately controlled Pain: adequately controlled Airway Patency, RR, SpO2: stable & adequate BP & HR: stable & adequate Hydration State: stable & adequate Neuraxial Anesthesia: sensory block resolved Anesthetic Complications: no major complications apparent
[2016-07-17 15:11] VITALS: BP 151/80; PULSE 73; TEMP 36.8; O2SAT 95
[2016-07-17 20:51] VITALS: BP 147/75; PULSE 73
[2016-07-17] MEDS: TOLTERODINE TARTRATE LA 2 MG CAPCR PO SCH (21:21)
[2016-07-17] MEDS: SIMVASTATIN 40 MG TAB PO SCH (21:21)
[2016-07-17 23:05] VITALS: BP 172/80; PULSE 76; TEMP 36.8; O2SAT 93
[2016-07-18] MEDS: CHECK SCOPOLAMINE PATCH PLACEMENT SCH
[2016-07-18] MEDS: TRAMADOL HCL 50 MG TAB PO PRN ×2 (01:42→07:22)
[2016-07-18] MEDS: ACETAMINOPHEN 500 MG TAB PO SCH ×3 (01:45→18:23)
[2016-07-18 03:13] VITALS: BP 166/82; PULSE 71; O2SAT 92
[2016-07-18] MEDS: LEVOTHYROXINE 88 MCG TAB PO SCH (05:29)
[2016-07-18 05:55] LABS: BUN/CREATININE RATIO 17.6 (10-20); CALCIUM 8.2 mg/dl (8.5-10.1); CREATININE 1.2 mg/dl (0.60-1.20); POTASSIUM 4.1 mmol/L (3.5-5.1)
[2016-07-18 06:01] VITALS: BP 156/84; PULSE 74; TEMP 37; O2SAT 94
[2016-07-18] MEDS: MULTIVITAMIN TAB PO SCH (07:22)
[2016-07-18] MEDS: RESTASIS-ORDER AWAITING ACTION SCH ×4 (07:22→23:45)
[2016-07-18] MEDS: ESCITALOPRAM OXALATE 10 MG TAB PO SCH (07:23)
[2016-07-18] MEDS: PANTOprazole SOD 40 MG TAB PO SCH (07:23)
[2016-07-18] MEDS: FERROUS GLUCONATE 324 MG TAB PO SCH ×3 (07:23→18:22)
--- NOTE | 2016-07-18 07:32 | PROGRESS NOTE ---
DATE: 07/18/2016 SUBJECTIVE: An 80-year-old white female postop day 2 from right total knee replacement. She is doing pretty well. Knee is pretty sore today. We did stop her Toradol and it seems a bit more painful today. No chest pain or shortness of breath. Not feeling dizzy or lightheaded. OBJECTIVE: VITAL SIGNS: Temperature 37.0. Vital signs stable. Some mild hypertension. PHYSICAL EXAMINATION: GENERAL: Physical examination reveals a healthy pleasant elderly female. She is sitting up in bed and looks pretty comfortable. LUNGS: Clear to auscultation. HEART: Regular rate and rhythm. ABDOMEN: Soft, nontender, nondistended. EXTREMITIES: Grossly neurovascularly intact except as follows. Examination of the right lower extremity reveals the leg to be well aligned. Dressing is clean, dry and intact. She can dorsiflex and plantarflex her foot appropriately. She is neurologically intact. LABS: Creatinine improved at 1.20. Otherwise, electrolytes stable. ASSESSMENT: An 80-year-old white female postop day 2 from right total knee replacement, doing pretty well. She is pretty painful but we have been really limiting her pain medicines to avoid confusion. Creatinine has improved. PLAN: 1. DVT prophylaxis including thigh-high TEDs, SCDs, and aspirin twice a day. 2. PT/OT. Weightbearing as tolerated. Right total knee protocol. 3. Pain control. We are going to add Toradol back in for another 24 hours and see if we can help her with her pain. 4. Disposition: She is hoping to go to [facility] for a brief rehab stay. At this point she has been denied rehab and we may need to look into longterm.
[2016-07-18] MEDS: METOPROLOL TARTRATE 25 MG TAB PO SCH ×2 (08:13→20:52)
[2016-07-18] MEDS: DOCUSATE SODIUM 100 MG CAP PO SCH ×2 (08:14→20:48)
[2016-07-18] MEDS: ASPIRIN 325 MG ECTAB PO SCH ×2 (08:14→20:49)
[2016-07-18] MEDS: ONDANSETRON INJ 2 MG/ML 2 ML VIAL IV PRN (10:04)
[2016-07-18] MEDS: KETOROLAC TROMETHAMINE 15 MG/ML VIAL IV SCH ×3 (10:04→20:48)
--- NOTE | 2016-07-18 15:06 | Hospitalist Progress Note ---
Hospitalist Progress Note Date of Service Jul 18, 2016. Subjective Pt evaluation today including: conversation w/ patient, physical exam, lab review, review of inpatient medication list C/o more pain this morning and nausea. She's requiring tramadol on top of Tylenol and Toradol. Per RN, she's been mildly confused throughout the day. She admits she felt confused this morning, but thinks she feels better now. Medications Current Inpatient Medications Medications (Trade) Dose Ordered Sig/Michelle Route Start Time Stop Time Status Last Admin Dose Admin Miscellaneous (Remove Transderm-Scop Patch) 1 ea Q72H N/A 07/19/16 06:00 07/19/16 06:01 Morphine Sulfate (MoRPHine SULFATE INJ) 2 mg Q1H PRN IV 07/16/16 13:45 07/30/16 13:44 Acetaminophen (Tylenol Tab) 1,000 mg Q8H PO 07/16/16 18:00 08/15/16 17:59 07/18/16 12:54 1,000 MG Magnesium Hydroxide (Milk Of Magnesia Susp) 30 ml Q6H PRN PO 07/16/16 13:45 08/15/16 13:44 Bisacodyl (Dulcolax Supp) 10 mg DAILY PRN OH 07/16/16 13:45 08/15/16 13:44 Docusate Sodium (coLACE CAP) 100 mg BID PO 07/16/16 21:00 08/15/16 20:59 07/18/16 08:14 100 MG Diphenhydramine HCl (Benadryl Cap) 25 mg Q8H PRN PO 07/16/16 13:45 08/15/16 13:44 Diphenhydramine HCl (Benadryl Inj) 25 mg Q8H PRN IV 07/16/16 13:45 08/15/16 13:44 Al Hydrox/Mg Hydrox/Simethicone (Maalox Max Susp) 15 ml Q4H PRN PO 07/16/16 13:45 08/15/16 13:44 Zolpidem Tartrate (Ambien Tab) 5 mg HSZ PRN PO 07/16/16 13:45 08/15/16 13:44 Multivitamins (Multivitamin Tab) 1 tab QAM PO 07/17/16 09:00 08/16/16 08:59 07/18/16 07:22 1 TAB Ondansetron HCl (Zofran Inj) 4 mg Q6H PRN IV 07/16/16 13:45 08/15/16 13:44 07/18/16 10:04 4 MG Metoclopramide HCl (Reglan Inj) 10 mg Q6H PRN IV 07/16/16 13:45 08/15/16 13:44 Ferrous Gluconate (Ferrous Gluconate Tab) 324 mg TIDM PO 07/16/16 17:45 08/15/16 17:59 07/18/16 12:54 324 MG Pantoprazole Sodium (Protonix Tab) 40 mg QAM PO 07/17/16 09:00 08/16/16 08:59 07/18/16 07:23 40 MG Aspirin (Ecotrin Tab) 325 mg BID PO 07/16/16 21:00 08/15/16 20:59 07/18/16 08:14 325 MG Tramadol HCl (Ultram Tab) 1 tablet for pain rating... Q4H PRN PO 07/16/16 13:45 08/15/16 13:44 07/18/16 07:22 50 MG Escitalopram Oxalate (Lexapro Tab) 10 mg QAM PO 07/17/16 09:00 08/16/16 08:59 07/18/16 07:23 10 MG Levothyroxine Sodium (Synthroid Tab) 88 mcg DAILYBB PO 07/17/16 06:00 08/16/16 05:59 07/18/16 05:29 88 MCG Metoprolol Tartrate (Lopressor Tab) 25 mg BID PO 07/16/16 21:00 08/15/16 20:59 07/18/16 08:13 25 MG Simvastatin (Zocor Tab) 40 mg HS PO 07/16/16 21:00 08/15/16 20:59 07/17/16 21:21 40 MG Tolterodine Tartrate (Detrol LA Cap) 2 mg HS PO 07/16/16 21:00 08/15/16 20:59 07/17/16 21:21 2 MG Miscellaneous Information (Order Awaiting Action) 1 ea QS N/A 07/16/16 16:00 08/15/16 15:59 Ketorolac Tromethamine (Toradol Inj) 15 mg Q6H IV 07/18/16 08:00 07/19/16 02:01 07/18/16 14:33 15 MG Objective Vital Signs Date Time Temp Pulse Resp B/P Pulse Ox O2 Delivery O2 Flow Rate FiO2 07/18/16 07:00 Room Air 07/18/16 06:01 37.0 74 16 156/84 94 Room Air 07/18/16 03:13 71 166/82 92 Room Air 07/18/16 00:29 Room Air 07/17/16 23:05 36.8 76 16 172/80 93 Room Air 07/17/16 20:51 73 147/75 07/17/16 19:20 Room Air 07/17/16 15:11 36.8 73 16 151/80 95 Room Air Physical Exam General Appearance: no apparent distress Eyes: sclerae normal Neck: no JVD Respiratory/Chest: lungs clear, no respiratory distress Cardiovascular: regular rate, rhythm Abdomen: normal bowel sounds, non tender, soft Extremities: no pedal edema Neurologic/Psychiatric: alert, oriented x 3 Skin: normal color, warm/dry Laboratory Results Last 24 Hours Test 07/18/16 05:11 Sodium Level 134 mmol/L Potassium Level 4.1 mmol/L Chloride Level 102 mmol/L Carbon Dioxide Level 26 mmol/L Anion Gap 6.0 mmol/L Blood Urea Nitrogen 21 mg/dl Creatinine 1.20 mg/dl Est Creatinine Clear Calc Drug Dose 31.4 ml/min Estimated GFR () 48.7 Estimated GFR (Non- 42.1 BUN/Creatinine Ratio 17.6 Random Glucose 145 mg/dl Calcium Level 8.2 mg/dl Assessment and Plan 80-year-old female status post right TKA-postop day #2, mild renal insufficiency , and now is mildly confused today. S/P right TKA -pain management, DVT prophylaxis, PT per primary team -Plan is for d/c to rehab vs SNF Mild confusion -?mild delirium related to pain meds. Difficult to avoid given that her pain isn't well controlled with non-opioid meds alone. -UA collected yesterday showed >30 WBCs and was leukocyte esterase positive. It also had many epithelial cells and I suspect it was a poor specimen. She has no other clinical signs or symptoms of a UTI, but if present, this could contribute to delirium. If she developed any other signs of infection, I would send a culture and start abx. Mild acute renal insufficiency -Resolved with IV fluids -Recheck BMP in the AM Hypertension -Continue Lopressor 25 mg twice daily Urinary incontinence -Continue Detrol 2 mg at night Hyperlipidemia -Continue Zocor 40 mg at night Hypothyroidism -Continue Synthroid 88 g daily Depression -Continue Lexapro 10 mg in the morning Thank you for allowing us to participate in Ms. Heck's care. We will continue to follow her with you.
[2016-07-18 15:08] VITALS: BP 172/82; PULSE 79; O2SAT 97
[2016-07-18 15:25] VITALS: BP 124/67; PULSE 70; TEMP 36.9; O2SAT 94
[2016-07-18 20:30] VITALS: BP 133/78; PULSE 73
[2016-07-18] MEDS: TOLTERODINE TARTRATE LA 2 MG CAPCR PO SCH (20:49)
[2016-07-18] MEDS: SIMVASTATIN 40 MG TAB PO SCH (20:50)
[2016-07-18 23:45] VITALS: BP 106/64; PULSE 77; TEMP 36.8; O2SAT 95
[2016-07-19] MEDS: ACETAMINOPHEN 500 MG TAB PO SCH ×2 (02:35→14:06)
[2016-07-19] MEDS: KETOROLAC TROMETHAMINE 15 MG/ML VIAL IV SCH (02:35)
[2016-07-19] MEDS: LEVOTHYROXINE 88 MCG TAB PO SCH (04:17)
[2016-07-19] MEDS: RESTASIS-ORDER AWAITING ACTION SCH ×2 (04:18→12:26)
[2016-07-19 05:41] LABS: BASO % 0.2 %; BASO ABS # 0.02 K/uL (0-0.2); COMPLETE YES; EOS % 1.5 %; HEMATOCRIT 29.1 % (37-47); IG% 0.2 %; LYMPH % 17.7 %; LYMPH ABS # 1.82 K/uL (1.2-3.4); MEAN CELL VOLUME 91.5 fL (80-100); MEAN CORPUSCULAR HEMOGLOBIN 30.5 pg (25-34); MEAN CORPUSCULAR HGB CONC 33.3 g/dl (32-36); MONO % 12.7 %; NEUT % 67.7 %; PLATELET COUNT 217 K/uL (130-400); RED BLOOD COUNT 3.18 M/uL (4.2-5.4); WHITE BLOOD COUNT 10.28 K/uL (4.8-10.8)
[2016-07-19 06:11] LABS: CALCIUM 8.3 mg/dl (8.5-10.1); CREATININE 1.4 mg/dl (0.60-1.20); POTASSIUM 4.5 mmol/L (3.5-5.1)
[2016-07-19 07:25] VITALS: BP 157/80; PULSE 67; TEMP 36.8; O2SAT 96
[2016-07-19] MEDS: ONDANSETRON INJ 2 MG/ML 2 ML VIAL IV PRN (08:50)
[2016-07-19] MEDS: METOPROLOL TARTRATE 25 MG TAB PO SCH (08:55)
[2016-07-19] MEDS: PANTOprazole SOD 40 MG TAB PO SCH (08:55)
[2016-07-19] MEDS: MULTIVITAMIN TAB PO SCH (08:55)
[2016-07-19] MEDS: ASPIRIN 325 MG ECTAB PO SCH (08:56)
[2016-07-19] MEDS: DOCUSATE SODIUM 100 MG CAP PO SCH (08:57)
[2016-07-19] MEDS: ESCITALOPRAM OXALATE 10 MG TAB PO SCH (08:57)
[2016-07-19] MEDS: FERROUS GLUCONATE 324 MG TAB PO SCH ×2 (08:57→14:07)
--- NOTE | 2016-07-19 09:19 | PROGRESS NOTE ---
DATE: 07/19/2016 DATE: 07/19/2016. SUBJECTIVE: An 80-year-old white female postop day 3 from a right total knee replacement. She is doing pretty well. Pain seems to be a little bit better the past 24 hours since we added some Toradol. No chest pain or shortness of breath. Not feeling dizzy or lightheaded. OBJECTIVE: VITAL SIGNS: Temperature is 36.8. Vital signs stable. PHYSICAL EXAMINATION: GENERAL: A pleasant elderly female. She is lying in bed pretty comfortable. I did have to wake her this morning. LUNGS: Clear to auscultation. HEART: Regular rate and rhythm. ABDOMEN: Soft, nontender, nondistended. EXTREMITY EXAMINATION: Grossly neurovascularly intact except as follows: Examination of the right lower extremity reveals the leg to be well aligned. Dressing is clean, dry and intact. Calf is soft and supple. She can dorsiflex and plantarflex her foot appropriately. She has a good straight leg raise. ASSESSMENT: An 80-year-old female postop day 3 from right knee replacement, doing pretty well. Pain seems to be improved. She is neurologically intact. PLAN: 1. DVT prophylaxis including thigh-high TEDs, SCDs, and aspirin twice a day. 2. PT/OT. Weightbearing as tolerated. Right total knee protocol. 3. Pain control, doing pretty well with current pain regimen. 4. Disposition: She is planning to be discharged to [facility] after therapy today.
--- NOTE | 2016-07-19 09:30 | Hospitalist Progress Note ---
Hospitalist Progress Note Date of Service Jul 19, 2016. (Brunilda Arroyo PA-C) Subjective Pt evaluation today including: conversation w/ patient, physical exam, chart review, lab review, review of inpatient medication list Patient says that she is feeling "eh, ok" this morning. She is eating breakfast. She is complaining of mild nausea. No actual vomiting. Denies abdominal pain. Had a bowel movement yesterday. Denies any fever or chills. No chest pain or shortness of breath. Pain in the knee is bearable. Denies any urinary symptoms. Additional Comments: 6 system review negative. Please see pertinent positives in the history of present illness section. (Brunilda Arroyo PA-C) Objective Vital Signs Date Time Temp Pulse Resp B/P Pulse Ox O2 Delivery O2 Flow Rate FiO2 07/19/16 07:25 36.8 67 20 157/80 96 Room Air 07/19/16 04:18 Room Air 07/18/16 23:45 36.8 77 16 106/64 95 Room Air 07/18/16 20:30 73 133/78 07/18/16 15:42 Room Air 07/18/16 15:25 36.9 70 16 124/67 94 Room Air 07/18/16 15:08 79 97 (Brunilda Arroyo PA-C) Physical Exam General Appearance: no apparent distress Eyes: EOMI Neck: no JVD Respiratory/Chest: lungs clear Cardiovascular: regular rate, rhythm Abdomen: normal bowel sounds, non tender, soft Extremities: no pedal edema Neurologic/Psychiatric: no motor/sensory deficits, alert (alert and answering questions appropriately) Skin: warm/dry (Brunilda Arroyo PA-C) Laboratory Results Last 24 Hours Test 07/19/16 05:10 White Blood Count 10.28 K/uL Red Blood Count 3.18 M/uL Hemoglobin 9.7 g/dL Hematocrit 29.1 % Mean Corpuscular Volume 91.5 fL Mean Corpuscular Hemoglobin 30.5 pg Mean Corpuscular Hemoglobin Concent 33.3 g/dl Platelet Count 217 K/uL Mean Platelet Volume 10.0 fL Neutrophils (%) (Auto) 67.7 % Lymphocytes (%) (Auto) 17.7 % Monocytes (%) (Auto) 12.7 % Eosinophils (%) (Auto) 1.5 % Basophils (%) (Auto) 0.2 % Neutrophils # (Auto) 6.96 K/uL Lymphocytes # (Auto) 1.82 K/uL Monocytes # (Auto) 1.31 K/uL Eosinophils # (Auto) 0.15 K/uL Basophils # (Auto) 0.02 K/uL RDW Standard Deviation 49.5 fL RDW Coefficient of Variation 14.7 % Immature Granulocyte % (Auto) 0.2 % Immature Granulocyte # (Auto) 0.02 K/uL Sodium Level 133 mmol/L Potassium Level 4.5 mmol/L Chloride Level 98 mmol/L Carbon Dioxide Level 29 mmol/L Anion Gap 6.0 mmol/L Blood Urea Nitrogen 22 mg/dl Creatinine 1.40 mg/dl Est Creatinine Clear Calc Drug Dose 26.9 ml/min Estimated GFR () 40.5 Estimated GFR (Non- 34.9 BUN/Creatinine Ratio 16.0 Random Glucose 89 mg/dl Calcium Level 8.3 mg/dl (Brunilda Arroyo, PAJocelynC) Assessment and Plan (1) HTN (hypertension) Assessment & Plan: Stable -Continue Lopressor 25 mg twice daily (2) Hyperlipidemia Assessment & Plan: Continue Zocor 40 mg daily (3) Hypothyroidism Assessment & Plan: Continue Synthroid 88 g daily (4) Acute renal insufficiency Assessment & Plan: Mild bump in creatinine this morning at 1.4-I still think this is likely secondary to dehydration as the patient is not eating or drinking well. She is complaining of nausea. -Encourage oral intake -Repeat urinalysis-straight cath. Send for culture. -Repeat BMP in 2 days (5) Metabolic encephalopathy Assessment & Plan: Patient was reportedly confused yesterday. She is lucid on my exam today. I question whether this is secondary to UTI (less likely) versus pain meds and hospital delirium -Follow up urinalysis (6) Nausea Assessment & Plan: ? Etiology. Patient had a bowel movement yesterday. I do not suspect an ileus. 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 Encourage PO intake. Avoid NSAIDS for renal fxn. Follow up urine culture. Repeat BMP in 2 days (Brunilda Arroyo PA-C) Patient was seen and examined. Case was discussed with Brunilda Arroyo PA-C. I agree with her assessment and plan as written above. Patient is medically stable for discharge to [facility]. (Ang Coleman MD)
[2016-07-19 11:56] VITALS: BP 131/74; PULSE 66; O2SAT 97
--- NOTE | 2016-07-19 12:08 | Discharge Instructions ---
Discharge Instructions Admission Reason for Admission: Right Knee Osteoarthritis Discharge Discharge Diagnosis / Problem: s/p R TKA Discharge Goals Goal(s): Improve function Activity Recommendations Activity Limitations: per Instructions/Follow-up section . Instructions / Follow-Up Instructions / Follow-Up Encourage fluid intake. Avoid NSAIDS for kidney function. Follow up urine culture. Repeat BMP in 2 days Current Hospital Diet Patient's current hospital diet: Regular Diet Discharge Diet Recommended Diet: Regular Diet Procedures Procedures Performed: Right total knee arthroplasty Pending Studies Studies pending at discharge: no Medical Emergencies . Who to Call and When: Medical Emergencies: If at any time you feel your situation is an emergency, please call 911 immediately. . Non-Emergent Contact Non-Emergency issues call your: Primary Care Provider, Surgeon . . "Provider Documentation" section prepared by Brunilda Arroyo. VTE Core Measure Inpt VTE Proph given/why not?: [place], SCD's
[2016-07-19 13:12] LABS: URINE APPEARANCE CLEAR (CLEAR); URINE BILIRUBIN NEG (NEG); URINE COLOR YELLOW; URINE EPITHELIAL CELL AUTO >30 /lpf (0-5); URINE NITRITE NEG (NEG); URINE SPECIFIC GRAVITY 1.012 (1.000-1.030); UROBILINOGEN NEG (NEG)
[2016-07-19 13:32] LABS: MANUAL MICROSCOPIC REQUIRED? NO; REVIEW REQ? NO
[2016-07-19 14:02] VITALS: BP 131/74; PULSE 66; TEMP 36.8; O2SAT 97
[2016-07-19] MEDS: TRAMADOL HCL 50 MG TAB PO PRN (14:07)
--- NOTE | 2016-07-23 14:32 | DISCHARGE SUMMARY ---
ADMITTING PHYSICIAN AND SURGEON: Dr. Briceño. ADMITTING DIAGNOSIS: Right knee degenerative joint disease. SURGERY PERFORMED: Right total knee arthroplasty. SECONDARY DIAGNOSES: Elevated cholesterol, recent pneumonia, hypothyroidism, low back pain, sciatica, gastroesophageal reflux disease, hiatal hernia. HISTORY AND PHYSICAL EXAMINATION: Well documented in the patient's chart. CONSULTS: Dr. Mccann postoperative medical management. HOSPITAL COURSE: The patient was admitted on 07/16/2016 underwent total knee arthroplasty. She tolerated procedure well. There were no complications. She was transferred to the PACU postoperatively and later to the orthopedic floor for further care. She was given Ancef for antibiotic prophylaxis, DEVONTE stockings, SCDs and aspirin for DVT prophylaxis. Hemoglobin, hematocrit and vital signs were monitored during her hospital stay and remained stable. She developed some postoperative anemia with a hemoglobin down to 9.7, did not require any blood transfusions. She had elevated creatinine postoperatively; her Toradol was discontinued and this improved. There were no complications. By postoperative day 3, she was tolerating a general diet, pain was controlled with oral pain medicine. She was participating in physical therapy and had no signs or symptoms of deep vein thrombosis. On postoperative day 3, she was discharged to a detention facility. She had been denied stay at rehab facility. She was given printed discharge instructions including prescriptions for extra strength Tylenol, aspirin 325 mg b.i.d., iron supplement and tramadol. Continue her home medications with the exception of her home dose of aspirin, continue physical therapy, weightbearing as tolerated, DEVONTE stockings. Follow up in 10-12 days or sooner if there are any problems or concerns.
== END 2016-07-19 14:30 | DRG 470 ==
LOC: ENRESERVDT → ENRESERVTM → C.ACU 08:06 → C.3E 09:20
PROVIDERS: ADMIT Orthopaedic Surgery Sports Medicine; ATTEND Orthopaedic Surgery Sports Medicine
PROC: 0SRC0J9 Replacement of Right Knee Joint with Synthetic Substitute, Cemented, Open Approach (ICD-10-PCS; principal; 2016-07-16 10:50)
DX: M17.11 Unilateral primary osteoarthritis, right knee (principal); N17.9 Acute kidney failure, unspecified; M21.061 Valgus deformity, not elsewhere classified, right knee; I10 Essential (primary) hypertension; E03.9 Hypothyroidism, unspecified; E78.00 Pure hypercholesterolemia, unspecified; N32.89 Other specified disorders of bladder; F32.9 Major depressive disorder, single episode, unspecified; H04.129 Dry eye syndrome of unspecified lacrimal gland; G51.0 Bell's palsy; T40.4X5A Adverse effect of other synthetic narcotics, initial encounter; T39.8X5A Adverse effect of other nonopioid analgesics and antipyretics, not elsewhere classified, initial encounter; Z87.440 Personal history of urinary (tract) infections; Z87.01 Personal history of pneumonia (recurrent); Z79.82 Long term (current) use of aspirin; Z79.899 Other long term (current) drug therapy; Z88.2 Allergy status to sulfonamides

== ENCOUNTER → 2016-11-25 | Outpatient (CLI) | payer BC ==
[~2016-11-25] MED LIST changes: +ACET-1138 PO; -ACETAMINOPHEN 500 MG TAB PO SCH; +ASPEC325 PO; -ASPEC81 PO; -BUPIVACAINE 0.25% 30 ML VIAL ONE; -BUPIVACAINE 0.5 % 5 MG/1 ML PF 10ML VIAL ONE; -BUPIVACAINE LIPOSOME 266 MG, BUPIVACAINE/EPINEPHRINE INJ 50 ML, SODIUM CHLORIDE 0.9% PF... INFIL SCH; -CEFAZOLIN 2000 MG/60 ML D5W 60 ML IV SCH; -FAMOTIDINE 20 MG TAB PO SCH; +FRRG PO; -GABAPENTIN 300 MG CAP PO SCH; -IPRA1AER2 INH; -IPRASOL4 INH; -LACTATED RINGER'S 1000ML 1,000 ML IV SCH; -LACTATED RINGER'S 1000ML IV SCH; -METOCLOPRAMIDE HCL 10 MG TAB PO SCH; -SCOPOLAMINE 1.5 MG TDSY TD SCH; -TRANEXAMIC ACID INJ 1,000 MG in SODIUM CHLORIDE 0.9% 100ML 100 ML IV SCH; +ULT50X PO
--- NOTE | 2016-11-26 08:02 | MAMMOGRAPHY REPORT ---
BILATERAL DIGITAL SCREENING MAMMOGRAM WITH CAD: 11/25/2016 CLINICAL HISTORY: Routine screening. Patient has no complaints. TECHNIQUE: Bilateral CC and MLO views were obtained. Current study was also evaluated with a Comput er Aided Detection (CAD) system. COMPARISON: Comparison is made to exams dated: 11/23/2015 mammogram, 11/22/2014 mammogram, 10/27/2013 chris mogram, 10/26/2012 mammogram, 10/25/2011 mammogram, and 11/01/2013 mammogram - [facility]. BREAST COMPOSITION: The tissue of both breasts is heterogeneously dense, which may obscure small mas ses. FINDINGS: There are mild vascular calcifications in the breasts. The parenchymal pattern is unchang ed. No developing mass, architectural distortion or cluster of suspicious microcalcifications is seen in either breast. IMPRESSION: ACR BI-RADS CATEGORY 2: BENIGN There is no mammographic evidence of malignancy. A 1 year screening mammogram is recommended. The pa tient will receive written notification of the results. Approximately 10% of breast cancers are not detected with mammography. A negative mammographic report should not delay biopsy if a clinically suggestive mass is present. Marietta Briceno M.D. ay/:11/25/2016 14:54:56 Concrete Handler: Ghazala SCHRADER(R)(M), [facility] letter sent: Normal 1/2 BI-RADS Code: ACR BI-RADS Category 2: Benign
== END | disposition home or self-care (01) ==
LOC: C.MAMM 14:15
PROVIDERS: ATTEND Obstetrics & Gynecology
DX: Z12.31 Encounter for screening mammogram for malignant neoplasm of breast (principal)

== ENCOUNTER → 2017-01-06 | Outpatient (CLI) | payer BC | END | disposition home or self-care (01) | LOC: C.PAPS 10:30 | PROVIDERS: ATTEND Obstetrics & Gynecology | DX: N81.10 Cystocele, unspecified (principal); L90.0 Lichen sclerosus et atrophicus ==

== ENCOUNTER → 2017-02-10 | Outpatient (CLI) | payer BC ==
--- NOTE | 2017-02-10 11:31 | DIAGNOSTIC IMAGING REPORT ---
LEFT FOOT MIN 3 VIEWS ROUTINE CLINICAL HISTORY: 81 years-old Female presenting with M79.672 Foot pain, left. TECHNIQUE: Frontal, oblique, and lateral views of the left foot were obtained. COMPARISON: None. FINDINGS: Degenerative changes of the articulation of the medial cuneiform with the first metatarsal. Additional degenerative changes of the tarsometatarsal articulations. Posterior Mediport deformity of the neck of the fifth metatarsal. Osteopenia suggested. No acute fracture or subluxation. Bone spur noted at the inferior calcaneus. Spurring of the anterior process of the talus along the dorsal aspect. IMPRESSION: Multifocal degenerative changes of the left foot detailed above. No acute osseous injury. Electronically signed by: Eduin Brown M.D. 02/10/2017 11:29 AM Dictated Date/Time: 02/10/2017 11:28 AM
== END | disposition home or self-care (01) ==
LOC: C.RAD1850 11:00
PROVIDERS: ATTEND Internal Medicine
DX: M79.672 Pain in left foot (principal); M85.872 Other specified disorders of bone density and structure, left ankle and foot

== ENCOUNTER → 2017-02-10 | Outpatient (CLI) | payer BC ==
[2017-02-10 12:39] LABS: ESTIMATED AVERAGE GLUCOSE 123 mg/dl; HA1C FLAG Normal (Normal)
[2017-02-10 13:53] LABS: BLOOD UREA NITROGEN 16 mg/dl (7-18); BUN/CREATININE RATIO 13.7 (10-20); CALCIUM 9.5 mg/dl (8.5-10.1); CARBON DIOXIDE 31 mmol/L (21-32); CHLORIDE 106 mmol/L (98-107); GLUCOSE 95 mg/dl (70-99); PHOSPHORUS 3.3 mg/dl (2.5-4.9); POTASSIUM 5.1 mmol/L (3.5-5.1); SODIUM 140 mmol/L (136-145)
[2017-02-10 13:58] LABS: CHOLESTEROL/HDL RATIO 5.1
== END | disposition home or self-care (01) ==
LOC: C.LAB1850 10:27
PROVIDERS: ATTEND Internal Medicine
DX: N18.3 Chronic kidney disease, stage 3 (moderate) (principal); R73.03 Prediabetes; M79.672 Pain in left foot; M85.872 Other specified disorders of bone density and structure, left ankle and foot

== ENCOUNTER → 2017-02-12 | Outpatient (CLI) | payer BC ==
[2017-02-12 17:57] LABS: URINE APPEARANCE TURBID (CLEAR); URINE BILIRUBIN NEG (NEG); URINE COLOR DK YELLOW; URINE EPITHELIAL CELL AUTO >30 /lpf (0-5); URINE NITRITE NEG (NEG); URINE SPECIFIC GRAVITY 1.018 (1.000-1.030); UROBILINOGEN NEG (NEG)
[2017-02-12 17:58] LABS: MANUAL MICROSCOPIC REQUIRED? NO; REVIEW REQ? NO
[2017-02-12 18:18] LABS: URINE PROTIEN/CREAT RATIO 0.2 (0-0.2); URINE TOTAL PROTEIN 23.5 mg/dl (0-11.9)
== END | disposition home or self-care (01) ==
LOC: C.LABSPEC 06:38
PROVIDERS: ATTEND Internal Medicine Nephrology
DX: N18.3 Chronic kidney disease, stage 3 (moderate) (principal)

== ENCOUNTER → 2017-08-13 | Outpatient (CLI) | payer BC ==
[2017-08-13 12:50] LABS: HEMOGLOBIN A1C 6.1 % (4.5-5.6)
[2017-08-13 13:13] LABS: ALT/SGPT 29 U/L (12-78); AST/SGOT 16 U/L (15-37); BLOOD UREA NITROGEN 21 mg/dl (7-18); CALCIUM 9.4 mg/dl (8.5-10.1); CARBON DIOXIDE 30 mmol/L (21-32); CHOLESTEROL 147 mg/dl (0-200); CREATININE 1.28 mg/dl (0.60-1.20); GLUCOSE 93 mg/dl (70-99); POTASSIUM 4.1 mmol/L (3.5-5.1); SODIUM 139 mmol/L (136-145)
[2017-08-13 13:33] LABS: LDL CHOLESTEROL CALCULATED 67 mg/dl
== END | disposition home or self-care (01) ==
LOC: C.LAB1850 11:03
PROVIDERS: ATTEND Internal Medicine
DX: E78.00 Pure hypercholesterolemia, unspecified (principal); E03.9 Hypothyroidism, unspecified; R73.01 Impaired fasting glucose; N18.3 Chronic kidney disease, stage 3 (moderate)

== ENCOUNTER 2018-01-26 10:50 | Emergency (ER) | payer BC, OTHER ==
[2018-01-26 10:56] VITALS: Ht 157.5 cm
[2018-01-26] MEDS ORDERED: DIPHTHERIA/TETANUS/PERTUSSIS 0.5 ML SYR/VIAL IM. ONE (11:30)
[2018-01-26] MEDS ORDERED: LIDOCAINE 1% BUFFERED INJ 20 ML VIAL INFIL ONE (11:30)
--- NOTE | 2018-01-26 12:13 | DIAGNOSTIC IMAGING REPORT ---
L ELBOW MIN 3 VIEWS ROUTINE CLINICAL HISTORY: fall; L elbow trauma. Pain. COMPARISON: None. DISCUSSION: Considerable soft tissue edema posterior to the elbow. No evidence for fracture or dislocation. Cortical margins are intact. No significant joint effusion. IMPRESSION: Soft tissue edema posterior to the elbow. No acute bony abnormality. The above report was generated using voice recognition software. It may contain grammatical, syntax or spelling errors. Electronically signed by: Hernando Rojas M.D. 01/26/2018 12:11 PM Dictated Date/Time: 01/26/2018 12:10 PM
--- NOTE | 2018-01-26 12:34 | DIAGNOSTIC IMAGING REPORT ---
HEAD WITHOUT CONTRAST (CT) CT DOSE: 537.48 mGy.cm HISTORY: Trauma fall; scalp lac TECHNIQUE: Multiaxial CT images of the head were performed without the use of intravenous contrast. A dose lowering technique was utilized adhering to the principles of ALARA. Comparison: None. Findings: The paranasal sinuses and mastoid air cells are clear. The calvarium and skull base are intact. The ventricles and sulci are within normal limits. There is no mass, hematoma, midline shift, or acute infarct. Impression: No acute intracranial abnormality. Left prefrontal extracranial soft tissue edema The above report was generated using voice recognition software. It may contain grammatical, syntax or spelling errors. Electronically signed by: Hernando Rojas M.D. 01/26/2018 12:33 PM Dictated Date/Time: 01/26/2018 12:32 PM
[2018-01-26 14:38] VITALS: BP 161/92; PULSE 65; O2SAT 98
--- NOTE | 2018-01-27 15:23 | EMERGENCY ROOM VISIT NOTE ---
ED Visit Note First contact with patient: 11:17 Chief Complaint: Fall. History of Present Illness: Ms. Heck is a 82-year-old white female who is brought into the ED via wheelchair for evaluation of the fall. Patient reports she was at this hospital doing outpatient testing for upcoming surgery. She reports she tripped over her shoes and fell to the floor. When she fell she did strike the left side of her face and left arm on the ground but there was no loss of consciousness. Currently patient is complaining of pain in the right frontal area above the orbit. She describes this as sharp and deep achy. She rates her discomfort 5/ 10. Her pain is nonradiating. Her pain worsens with palpation. She has not identified any alleviating factors related to the pain. She has not had a medication for pain prior to arrival at the hospital. She denies any associated visual changes, hearing changes, difficulty speaking, difficulty swallowing, difficulty ambulating/coordinating body movements, neck pain, chest pain, shortness of breath, abdominal pain, nausea, vomiting. Additionally she complains of posterior left elbow pain. She describes this as an achy sensation and sometimes throbbing also. She rates her discomfort 2/10. Her pain is nonradiating. Her pain worsens with palpation over the olecranon process and when she reached full extension and flexion. She denies any associated shoulder pain, forearm pain, wrist pain, hand weakness/numbness/ tingling. Additionally she denies hip and lower extremity pain, weakness/numbness/ tingling. Review of Systems: As noted above in history of present illness. All body systems were reviewed and found to be negative as noted above. Past Medical History: (1) Depression (2) HTN (hypertension) (3) Hyperlipidemia (4) Hypothyroidism (5) Metabolic encephalopathy (6) Pneumonia (7) Urinary incontinence Current Medications: Medications Dose Route/Sig Max Daily Dose Days Date Category Dose Instructions Aspirin Ec (Aspirin) 81 Mg Tab 81 Mg PO QPM 01/19/18 Reported Timolol Maleate (Timolol Maleate (Ophth)) 0.5 % Karine 1 Drop OPB QAM 01/19/18 Reported Fish Oil (Loop-3 Fatty Acids) 1,000 Mg Cap 1 Tab PO BID 01/19/18 Reported Tylenol Extra Strength (Acetaminophen) 500 Mg Tab 1,000 Mg PO Q8H 30 07/17/16 Rx Take 3 times per day to lessen pain. Detrol LA (Tolterodine Tartrate) 2 Mg Capcr 1 Cap PO HS 90 06/06/16 Reported Levothyroxine Sodium 88 Mcg Tab 1 Tab PO QAM 90 06/06/16 Reported Lopressor (Metoprolol Tartrate) 25 Mg Tab 25 Mg PO BID 06/06/16 Reported Lexapro (Escitalopram Oxalate) 10 Mg Tab 10 Mg PO QAM 06/06/16 Reported Multivitamin (Multiple Vitamin) 1 Tab Tab 1 Tab PO QAM 10/08/11 Reported Restasis (Cyclosporine (Ophth)) 0.05 % Emu 1 Drop OPB BID 10/08/11 Reported Zocor (Simvastatin) 40 Mg Tab 40 Mg PO HS 08/26/06 Reported Allergies to Medications: Sulfa antibiotics. Social History: Patient is not currently employed; she feels safe in her home environment; she denies tobacco use. Tetanus Immunization Status: Patient reports greater than 10 years. Physical Examination: Vital Signs: Date Time Temp Pulse Resp B/P (MAP) Pulse Ox O2 Delivery O2 Flow Rate FiO2 01/26/18 14:38 65 20 161/92 98 01/26/18 10:56 36.7 62 18 167/93 97 Room Air GENERAL: 82-year-old female in mild distress due to pain, nontoxic-appearing, afebrile and hemodynamically stable. NEUROLOGICAL: Awake, alert and oriented to person, place and time. Answering questions appropriately and following commands. Good hand eye coordination. Cranial nerves II through XII grossly intact. Good short-term and long-term recall. SKIN: Warm, dry and pink. Face: Patient has 2 lacerations superior to the left orbit. The most superior laceration measures 1.9 cm and is full-thickness and the inferior one measures 1.5 cm and is full-thickness. There is minimal active bleeding. HEENT: Atraumatic and normocephalic. Skull: No bony deformity, bony crepitus, swelling or ecchymosis. No raccoons eyes or alvarez signs. No drainage from the ears of the nostril; knee. Face: Soft tissue injuries as noted above under SKIN. Surrounding this area patient has a large area of ecchymosis that starts in the frontal area but does extend into the upper and lower orbits on the right. Although there is pain directly over the laceration I do not appreciate any discomfort throughout the bony structures of the face including the orbits, zygoma Mattix, mandible or maxilla. PERRLA. EOMI without nystagmus. Sclera white and conjunctiva pink. No malocclusion. No intraoral trauma. Airway patent. Speech is normal and clear. Airway is patent. Trachea midline. No jugular venous distention. BACK: No tenderness over the bony cervical, thoracic and lumbar spines. No bony crepitus, deformity or step-offs are palpable. No tenderness throughout the paraspinous musculature. Full range of motion of the cervical spine. No CVA tenderness. THORAX: Lungs clear to auscultation and equal bilaterally with symmetrical chest wall. No wheezing, rales or rhonchi. No crepitus, tenderness, subcutaneous air or deformities noted. HEART: Regular rate and rhythm. No gallops, rubs or murmurs are appreciated. ABDOMEN: Flat, soft and nontender. Positive bowel sounds in all quadrants. No guarding, rigidity or organomegaly. PELVIS: Stable and nontender to compression and rock. UPPER EXTREMITIES: Left: Tenderness over the posterior aspect of the left elbow with moderate swelling and early ecchymosis. No bony deformity, bony crepitus, swelling or ecchymosis. No laxity throughout the elbow or shoulder. No tenderness over the forearm, wrist or hand. Moves the extremity well on command and with purpose. Distal pulses, sensation and capillary refill are present and equal bilaterally. LOWER EXTREMITIES: No gross bony deformities. No shortening or malrotation's. No tenderness in the hips, legs, knees, thighs, ankles or feet. Distal neurovascular statuses are intact and equal bilaterally. ED Course: Patient is assessed as noted above. Patient's medication list was reviewed. Patient was offered pain medications and refused. I did give her ice for her pain and swelling in her elbow and face. Patient was given an Adacel booster IM. Head CT: Was reviewed by myself and read by the radiologist showing no acute intracranial abnormality or skull fractures. Radiologist notes left prefrontal extracranial soft tissue swelling. Left Elbow X-Rays: Read by myself and the radiologist showing no acute fractures or dislocations. No sail sign or fat pad elevation. Moderate soft tissue edema over the posterior olecranon process. Wound Repair: Complexity: Basic Verbal consent was obtained after the risks and benefits were explained. The skin was prepped with betadine and a sterile field set. Wound edges of the wound was anesthetized with a total of 3.2 ml buffered 1% lidocaine. The wounds was explored for foreign bodies and none found. Copious irrigation was performed using sterile saline. With direct pressure the bleeding subsided. Debridement was not performed. The wound edges were approximated using 6-0 Ethilon with with total of 9 simple interrupted sutures. Hemostasis and excellent approximation was achieved. Antibacterial ointment and a sterile dressing applied. No complications and the patient tolerated the procedure well. Patient's left arm was placed in a sling. Patient's case was reviewed with Dr. Alvarado; we agreed on diagnostic approach, treatment, disposition and plan. Patient and her female friend were educated about today's findings and instructed on her treatment plan; they verbalized understanding and agreement with this plan. Clinical Impression: Fall. Laceration of the left side of the face. Left elbow contusion. Disposition: Patient discharged home in stable condition; prior to departure he was reassessed and subjectively reported she was feeling subjectively slightly better and rated her overall discomfort 4/10. Plan: Comfort measures, wound care, and signs of infection were discussed with the patient and her female friend. Head injury and precautions were discussed with the patient and her friend. Patient was encouraged to follow-up with PCP or return to the ED for any signs of infection and/or suture removal in 5-6 days. Patient was encouraged return to the ED for any signs of head injury or any new/ concerning symptoms.
== END 2018-01-26 14:38 | disposition home or self-care (01) ==
LOC: C.EDB 10:51 → C.EDD 14:38
DX: S01.81XA Laceration without foreign body of other part of head, initial encounter (principal); S50.02XA Contusion of left elbow, initial encounter; W18.09XA Striking against other object with subsequent fall, initial encounter; F32.9 Major depressive disorder, single episode, unspecified; I10 Essential (primary) hypertension; E03.9 Hypothyroidism, unspecified; E78.5 Hyperlipidemia, unspecified; R32 Unspecified urinary incontinence; Z88.2 Allergy status to sulfonamides; Z79.899 Other long term (current) drug therapy; Z23 Encounter for immunization

== ENCOUNTER → 2018-01-26 | Outpatient (CLI) | payer BC ==
[~2018-01-26] MED LIST changes: -ASPEC325 PO; +ASPI81TA28 PO; +CEPH500C2 PO; -DICL1GEL12 TOP; -FISHOIL PO; -FRRG PO; +OMEG10002 PO; -ULT50X PO; +[UNRECOGNIZED DRUG - CODE] OPB
[2018-01-26 10:52] LABS: BASO % 0.4 %; BASO ABS # 0.03 K/uL (0-0.2); EOS % 2.3 %; EOS ABS # 0.16 K/uL (0-0.5); HEMATOCRIT 43.2 % (37-47); HEMOGLOBIN 14.2 g/dL (12.0-16.0); IG# 0.01 K/uL (0.00-0.02); LYMPH % 39.2 %; LYMPH ABS # 2.74 K/uL (1.2-3.4); MEAN CELL VOLUME 93.7 fL (80-100); MEAN CORPUSCULAR HEMOGLOBIN 30.8 pg (25-34); MEAN CORPUSCULAR HGB CONC 32.9 g/dl (32-36); MEAN PLATELET VOLUME 9.9 fL (7.4-10.4); MONO % 9.9 %; MONO ABS # 0.69 K/uL (0.11-0.59); NEUT % 48.1 %; NEUT ABS # 3.36 K/uL (1.4-6.5); PLATELET COUNT 249 K/uL (130-400); RED CELL DISTRIBUTION WIDTH CV 14.5 % (11.5-14.5); RED CELL DISTRIBUTION WIDTH SD 49.3 fL (36.4-46.3); WHITE BLOOD COUNT 6.99 K/uL (4.8-10.8)
[2018-01-26 11:01] LABS: INR 0.9 (0.9-1.1); PTT PATIENT 25.9 SECONDS (21.0-31.0)
[2018-01-26 13:10] LABS: BLOOD UREA NITROGEN 18 mg/dl (7-18); CALCIUM 9.1 mg/dl (8.5-10.1); CARBON DIOXIDE 28 mmol/L (21-32); CREATININE 1.29 mg/dl (0.60-1.20); GLUCOSE 103 mg/dl (70-99); POTASSIUM 4.7 mmol/L (3.5-5.1); SODIUM 139 mmol/L (136-145)
--- NOTE | 2018-01-26 14:51 | DIAGNOSTIC IMAGING REPORT ---
TWO VIEW CHEST CLINICAL HISTORY: Preoperative examination. FINDINGS: PA and lateral chest radiographs are compared to study dated 06/06/2016. The cardiomediastinal silhouette is unremarkable noting atherosclerotic calcification of the thoracic aorta. There is a large hiatal hernia. There is chronic interstitial thickening. No airspace consolidation or pleural effusion is identified. There is no pneumothorax. The bony thorax appears intact. Cholecystectomy clips are seen in the right upper quadrant. IMPRESSION: 1. No active disease in the chest. 2. Hiatal hernia. Electronically signed by: Wojciech Dillard M.D. 01/26/2018 2:49 PM Dictated Date/Time: 01/26/2018 2:48 PM
== END | disposition home or self-care (01) ==
LOC: C.CPL 09:21
PROVIDERS: ATTEND Orthopaedic Surgery Sports Medicine
DX: Z01.818 Encounter for other preprocedural examination (principal)

== ENCOUNTER 2020-02-25 23:05 | Inpatient (IN) ==
[2020-02-25] MEDS ORDERED: SODIUM CHLORIDE 0.9% 1000ML 500 ML IV ONE (23:14)
[2020-02-25] MEDS ORDERED: GI COCKTAIL ED USE PO ONE (23:31)
[2020-02-25] MEDS ORDERED: METOCLOPRAMIDE HCL INJ 5 MG/ML 2 ML VIAL IV ONE (23:31)
--- NOTE | 2020-02-25 23:31 | Emergency Department Note ---
History of Present Illness General Chief complaint: Abdominal Pain Stated complaint: ABDOMINAL PAIN/lt. upper Time Seen by Provider: 02/25/20 23:09 Source: patient, family (daughter), EMS, RN notes reviewed and old records rev iewed Mode of arrival: EMS Limitations: no limitations History of Present Illness Provider complaint: Abdominal pain, jaundice Onset (ago): hour(s) 4 Location: abdomen Radiation: back Severity: moderate Pain Consistency: + intermittent Maximum Pain Intensity: 8 Current Pain Intensity: 8 Quality: + aching Relieved By: + immobilization Exacerbated By: + movement Associated symptoms: + nausea/vomiting; no chest pain, no diaphoresis, no fever/chills and no shortness of breath Treatments prior to arrival: none This is an 84-year-old female who has a known pancreatic mass who is decided not to get treatment for this mass who presents to the emergency department complaining of severe abdominal pain nausea and vomiting. The patient reports that the pain is an ache and radiates into her back. She has not been able to take anything for the pain due to the vomiting. She reports immobilization makes the pain better however movement or eating makes the pain worse. Home Medications Home Medications Medication Instructions Recorded Confirmed Type cyclosporine 1 drp OPHTHALMIC (EYE) Q12H #0 10/08/11 02/26/20 History multivitamin 1 tab PO QAM #0 10/08/11 02/26/20 History [place]-3 1 tab PO QAM #0 01/19/18 02/26/20 History aspirin 81 mg PO QPM #0 01/19/18 02/26/20 History timolol 1 drp OPHTHALMIC (EYE) BID #0 01/19/18 02/26/20 History acetaminophen [Pain Reliever] 1,000 mg PO Q8 #180 tab 02/25/18 02/26/20 Rx escitalopram oxalate 10 mg tablet 10 mg PO QAM #90 tab 03/30/19 02/26/20 Rx metoprolol tartrate 25 mg tablet 25 mg PO BID #180 tab 03/30/19 02/26/20 Rx tolterodine 2 mg capsule,extended 2 mg PO HS 90 Days #90 cap 03/30/19 02/26/20 Rx release 24 hr cholecalciferol (vitamin D3) 50 2,000 units PO DAILY #30 cap 04/16/19 02/26/20 Rx mcg (2,000 unit) capsule loperamide [Imodium] 2 mg PO DIRECTED PRN 02/26/20 02/26/20 History omeprazole 20 mg PO DAILY 02/26/20 02/26/20 History Allergies Allergy/AdvReac Type Severity Reaction Status Date / Time Sulfa (Sulfonamide Allergy Unknown sweats - ? Verified 02/26/20 00:39 Antibiotics) can't remember Past Med/Surg History Medical History (Updated 02/28/20 @ 06:40 by Ang Green MD) CKD (chronic kidney disease) stage 3, GFR 30-59 ml/min Degenerative disc disease GERD (gastroesophageal reflux disease) Hiatal hernia History of fracture of patella Hx of cataract Lichen sclerosus et atrophicus Low back pain Macular degeneration Metabolic encephalopathy Pneumonia Primary adenocarcinoma of head of pancreas Surgical History H/O colonoscopy History of lumbar laminectomy History of total knee arthroplasty RIGHT-- 07/16/16 at [facility], SAB and regional block without issues Hx of hysterectomy Hx of repair of rotator cuff BOTH Total knee replacement status Family History Sister Breast cancer Brother Colon cancer Prostate cancer Father Myocardial infarction Denies family history of Ovarian cancer Social History Smoking Status: Never smoker Second Hand Exposure: No; Hx Alcohol Use: No Hx Substance Use: No Preferred Language: Armenian Communication Ability: Effective Visual Impairment: No Limitations Beliefs That Will Affect Care: None marital status: / Current Living Situation: Alone Current Living Situation Comment: family close to check in per daughter current occupational status: retired Feels Safe at Home: Yes caffeine: No Dental Care, Regularly: No Physical Activity Frequency: Does not Exercise Seatbelt Use: always Sunscreen Use: Yes Review of Systems A total of 10 systems reviewed and were otherwise negative Physical Exam Vital Signs Vital Signs - 24 hr 02/25/20 23:22 02/25/20 23:31 02/26/20 00:00 Temperature 36.6 C Temperature Source Oral Pulse Rate 71 74 74 Pulse Rate from SpO2 Sensor 71 74 Respiratory Rate 18 23 17 Respiratory Effort / Characteristics Non-Labored Spontaneous Respiratory Depth Normal Blood Pressure 157/101 H 141/90 H 121/82 Blood Pressure Mean 119 96 97 Pulse Oximetry 95 96 92 Oxygen Delivery Method Room Air Room Air Room Air Sepsis Recent Fever Within 48 Hours No Sepsis New/Unexplained Change in Mental Status No Sepsis Action Taken by Nursing No Action Required 02/26/20 00:30 Temperature Temperature Source Pulse Rate 75 Pulse Rate from SpO2 Sensor 71 Respiratory Rate 20 Respiratory Effort / Characteristics Respiratory Depth Blood Pressure 137/75 Blood Pressure Mean 84 Pulse Oximetry 93 Oxygen Delivery Method Room Air Sepsis Recent Fever Within 48 Hours Sepsis New/Unexplained Change in Mental Status Sepsis Action Taken by Nursing VITAL SIGNS - Vital signs and nursing notes were reviewed. GENERAL - 83-year-old female appearing jaundiced & cachectic. Communicates well with provider and answers questions appropriately. SKIN - Without rashes. HEAD - NC/AT. EYES - PERRL with EOMI bilaterally. Sclera anicteric. Palpebral conjunctiva pink and moist with no injection noted. EARS - No deformities of external structures noted on gross examination bilaterally. No pain elicited with palpation of the tragus bilaterally. External auditory canals without discharge or otorrhea. Tympanic membranes pearly espinoza without retraction or bulging. No fluid or purulent material visualized behind the TM. Handle of malleus, umbo, cone of light, pars tensa/flaccid all easily visualized. NOSE - Midline and without cyanosis. No epistaxis or purulent drainage noted. Septum midline without deviation or septal hematoma noted. MOUTH/OROPHARYNX - Without perioral cyanosis. Buccal mucosa pink and moist and without leukoplakia. Tongue midline with equal elevation of palate bilaterally. No tonsillar hypertrophy, erythema, or exudates noted. dentition noted. NECK - Neck with FROM. Supple to palpation. lymphadenopathy noted. No nuchal rigidity. LUNGS - Chest wall symmetric without accessory muscle use, intercostals retractions, or central cyanosis. Normal vesicular breath sounds CTA B/L. No wheezes, rales, or rhonchi appreciated. CARDIAC - RRR with S1/S2. No murmur, rubs, or gallops appreciated. ABDOMEN - Abdominal contour without pulsations or visible masses. BS normoactive all four quadrants. No tenderness, palpable masses, hepatosplenomegaly, or ascites noted. Pt diffusely tender EXTREMITIES - No clubbing or peripheral cyanosis. No pretibial edema present. +3/5 radial, posterior tibial, and dorsalis pedis pulses palpated throughout. +5/5 strength noted in UE/LE bilaterally. NEUROLOGIC - Cranial nerves II through XII grossly intact. Sensory intact to light touch throughout. Patellar reflexes +2/4. PSYCH - A&Ox3 and cooperates fully with examiner. Pt is very pleasant and interacts well with examiner. Course Administered Medications Acetaminophen (Acetaminophen 500 Mg Tab) 1,000 mg PO Q8 PRN PRN Reason: pain Stop: 03/27/20 05:59 Last Admin: 02/27/20 21:52 Dose: 1,000 mg Documented by: [id number] Admin: 02/27/20 02:11 Dose: 1,000 mg Documented by: [id number] Al Hydrox/Mg Hydrox/Simethicone (Aluminum/Magnesium Susp 30 Ml Udc) 30 ml PO Q6H PRN PRN Reason: heartburn Stop: 03/27/20 04:24 Last Admin: 02/26/20 15:46 Dose: 30 ml Documented by: [id number] Enoxaparin Sodium (Enoxaparin Inj 40 Mg/0.4 Ml Syr) 40 mg SQ Q24H [facility] Stop: 03/27/20 08:59 Last Admin: 02/27/20 09:05 Dose: 40 mg Documented by: [id number] Admin: 02/26/20 09:17 Dose: 40 mg Documented by: [id number] Escitalopram Oxalate (Escitalopram Oxalate 10 Mg Tab) 10 mg PO QAM [facility] Stop: 03/27/20 08:59 Last Admin: 02/27/20 09:04 Dose: 10 mg Documented by: [id number] Admin: 02/26/20 09:15 Dose: 10 mg Documented by: [id number] Ceftriaxone Sodium 1,000 mg/ (Dextrose) 50 mls @ 100 mls/hr IV Q24H [facility]; Protocol Stop: 03/02/20 05:29 Last Infusion: 02/28/20 05:39 Dose: 0 mls/hr Documented by: [id number] Admin: 02/28/20 05:10 Dose: 100 mls/hr Documented by: [id number] Infusion: 02/27/20 05:28 Dose: 0 mls/hr Documented by: [id number] Admin: 02/27/20 04:58 Dose: 100 mls/hr Documented by: [id number] Infusion: 02/26/20 09:12 Dose: 0 mls/hr Documented by: [id number] Admin: 02/26/20 05:48 Dose: 100 mls/hr Documented by: [id number] Metoprolol Tartrate (Metoprolol Tartrate 25 Mg Tab) 25 mg PO BID [facility]EN Stop: 03/27/20 08:59 Last Admin: 02/27/20 21:44 Dose: 25 mg Documented by: [id number] Admin: 02/27/20 09:04 Dose: 25 mg Documented by: [id number] Admin: 02/26/20 21:10 Dose: 25 mg Documented by: [id number] Admin: 02/26/20 09:13 Dose: Not Given Documented by: [id number] Miscellaneous (Cyclosporine: Order Awaiting Action) 1 ea N/A QS [facility] Stop: 03/27/20 07:59 Last Admin: 02/28/20 00:23 Dose: Not Given Documented by: [id number] Admin: 02/27/20 18:03 Dose: Not Given Documented by: [id number] Admin: 02/27/20 09:07 Dose: Not Given Documented by: [id number] Admin: 02/26/20 23:45 Dose: Not Given Documented by: [id number] Admin: 02/26/20 18:34 Dose: Not Given Documented by: [id number] Admin: 02/26/20 18:34 Dose: Not Given Documented by: [id number] Pantoprazole Sodium (Pantoprazole 40 Mg Tab) 40 mg PO QAM [facility] Stop: 03/28/20 08:59 Last Admin: 02/27/20 09:05 Dose: 40 mg Documented by: [id number] Timolol Maleate (Timolol Maleate 0.5% Op Soln 5 Ml Btl) 1 drops OP BID [facility] Stop: 03/27/20 08:59 Last Admin: 02/27/20 21:44 Dose: 1 drops Documented by: [id number] Admin: 02/27/20 09:06 Dose: 1 drops Documented by: [id number] Admin: 02/26/20 21:10 Dose: 1 drops Documented by: [id number] Admin: 02/26/20 09:14 Dose: 1 drops Documented by: [id number] Tolterodine Tartrate (Tolterodine Tartrate La 2 Mg Capcr) 2 mg PO HS LAUREN Stop: 03/27/20 20:59 Last Admin: 02/27/20 21:44 Dose: 2 mg Documented by: [id number] Admin: 02/26/20 21:10 Dose: 2 mg Documented by: [id number] Discontinued Medications Acetaminophen (Acetaminophen 500 Mg Tab) 1,000 mg PO Q8 [facility] Stop: 03/27/20 05:59 Last Admin: 02/26/20 14:52 Dose: 1,000 mg Documented by: [id number] Admin: 02/26/20 06:45 Dose: 1,000 mg Documented by: [id number] Hydrox/Mg Hydrox/Simethicone (Gi Cocktail Ed Use) 1 dose PO ONE ONE Stop: 02/25/20 23:32 Last Admin: 02/26/20 01:19 Dose: Not Given Documented by: [id number] Hydromorphone HCl (Hydromorphone Inj 0.5 Mg/0.5 Ml Syr) 0.25 mg IV Q15M PRN PRN Reason: Pain Stop: 03/10/20 23:13 Last Admin: 02/26/20 02:13 Dose: 0.25 mg Documented by: [id number] Admin: 02/25/20 23:37 Dose: 0.25 mg Documented by: [id number] Hydromorphone HCl (Hydromorphone Inj 0.5 Mg/0.5 Ml Syr) 0.25 mg IV NOW STA Stop: 02/26/20 02:51 Last Admin: 02/26/20 03:07 Dose: 0.25 mg Documented by: [id number] Sodium Chloride (Nss 1000ml) 500 mls @ 999 mls/hr IV .Q31M ONE Stop: 02/25/20 23:44 Last Infusion: 02/26/20 02:46 Dose: 0 mls/hr Documented by: [id number] Admin: 02/25/20 23:37 Dose: 999 mls/hr Documented by: [id number] Pantoprazole Sodium 40 mg/ (Syringe) 10 mls @ 5 mls/min IV NOW ONE Stop: 02/26/20 01:49 Last Admin: 02/26/20 02:13 Dose: 5 mls/min Documented by: [id number] Pantoprazole Sodium 40 mg/ (Syringe) 10 mls @ 5 mls/min IV DAILY@1100 [facility] Stop: 03/27/20 10:59 Last Admin: 02/26/20 14:52 Dose: 5 mls/min Documented by: [id number] Sodium Chloride (Nss) 500 mls @ 80 mls/hr IV .Q6H15M [facility] Stop: 02/26/20 10:39 Last Infusion: 02/26/20 12:32 Dose: 0 mls/hr Documented by: [id number] Admin: 02/26/20 05:48 Dose: 80 mls/hr Documented by: [id number] Ioversol (Ioversol 100ml) 94 ml IV ONCE ONE Stop: 02/25/20 23:56 Last Admin: 02/25/20 23:55 Dose: 94 ml Documented by: [id number] Metoclopramide HCl (Metoclopramide Hcl Inj 5 Mg/Ml 2 Ml Vial) 5 mg IV ONE ONE Stop: 02/25/20 23:32 Last Admin: 02/25/20 23:37 Dose: 5 mg Documented by: [id number] Medical Decision Making Differential Diagnosis Appendicitis, ovarian cyst, ovarian torsion, ectopic , TOA, PID, infections, diverticulitis, UTI, obstruction, mesenteric ischemia, aortic pathology, inflammatory bowel disease, renal colic, PUD, pancreatitis, biliary pathology, hernia, volvulus, constipation, as well as other pathologies. Medical Records Attestation: I reviewed the patient's medical records. Home Medications Current Medication List: was personally reviewed by me Laboratory Data Attestation: I reviewed the patient's lab results. Result diagrams: 02/28/20 05:07 02/27/20 06:09 Lab Results 02/25/20 02/25/20 02/25/20 Range/Units 23:15 23:15 23:15 WBC 6.44 (4.8-10.8) K/uL RBC 3.86 L (4.2-5.4) M/uL Hgb 12.7 (12.0-16.0) g/dL POC Hgb (12.0-16.0) g/dl Hct 37.4 (37-47) % POC Hct (37-47) % MCV 96.9 (80-100) fL MCH 32.9 (25-34) pg MCHC 34.0 (32-36) g/dL RDW Std Deviation 52.5 H (36.4-46.3) fL RDW Coeff of Asael 14.9 H (11.5-14.5) % Plt Count 321 (130-400) K/uL MPV 10.7 H (7.4-10.4) fL Immature Gran % (Auto) 0.3 % Neut % (Auto) 68.7 % Lymph % (Auto) 15.7 % [place] % (Auto) 14.6 % Eos % (Auto) 0.5 % Baso % (Auto) 0.2 % Neut # (Auto) 4.43 (1.4-6.5) K/uL Lymph # (Auto) 1.01 L (1.2-3.4) K/uL [place] # (Auto) 0.94 H (0.11-0.59) K/uL Eos # (Auto) 0.03 (0-0.5) K/uL Baso # (Auto) 0.01 (0-0.2) K/uL Immature Gran # (Auto) 0.02 (0.00-0.02) K/uL PT (9.0-12.0) Seconds INR (0.9-1.1) APTT (21.0-31.0) Seconds PTT Ratio POC Sodium (135-144) mmol/L Sodium 132 L (136-145) mmol/L POC Potassium (3.3-5.0) mmol/L Potassium 3.8 (3.5-5.1) mmol/L POC Chloride (101-112) mmol/L Chloride 93 L (98-107) mmol/L Carbon Dioxide 33 H (21-32) mmol/L POC Total CO2 (24-31) mmol/L Anion Gap 6.0 (3-11) POC Anion Gap (16-25) mmol/L POC BUN (7-18) mg/dl BUN 21 H (7-18) mg/dl Creatinine 0.94 (0.6-1.2) mg/dl POC Creatinine (0.6-1.3) mg/dl Est Cr Clr Drug Dosing 32.6 ml/min Est GFR ( Amer) 63.7 Est GFR (Non-Af Amer) 54.9 BUN/Creatinine Ratio 22.9 H (10-20) Glucose 283 H (70-99) mg/dl POC Glucose (other) (70-99) mg/dl Calcium 9.3 (8.5-10.1) mg/dl POC Ioniz Calcium Roxi (1.12-1.32) mmol/l Magnesium 1.9 (1.8-2.4) mg/dl Total Bilirubin 7.4 H (0.2-1) mg/dl AST 261 H (15-37) U/L ALT 382 H (12-78) U/L Alkaline Phosphatase 842 H (45-117) U/L Troponin I 0.298 H* (0-0.045) ng/ml Total Protein 6.2 L (6.4-8.2) gm/dl Albumin 3.0 L (3.4-5.0) gm/dl Globulin 3.2 (2.5-4.0) gm/dl Albumin/Globulin Ratio 0.9 (0.9-2) Lipase 15 L (73-393) U/L Procalcitonin 0.90 H (0-0.5) ng/ml Urine Color Urine Appearance (Clear) Urine pH (4.5-7.5) Ur Specific [place] (1.000-1.030) Urine Protein (Negative) Urine Glucose (UA) (Negative) Urine Ketones (Negative) Urine Blood (Negative) Urine Nitrite (Negative) Urine Bilirubin (Negative) Urine Urobilinogen (Negative) Ur Leukocyte Esterase (Negative) Urine WBC (Auto) (0-5) /hpf Urine RBC (Auto) (0-4) /hpf U Hyaline Cast (Auto) (0-5) /lpf U Epithel Cells (Auto) (0-5) /lpf Urine Bacteria (Auto) (Negative) Urine Yeast Gastric Fluid pH Gastric Occult Blood (Negative) 02/25/20 02/25/20 02/25/20 Range/Units 23:15 23:30 23:40 WBC (4.8-10.8) K/uL RBC (4.2-5.4) M/uL Hgb (12.0-16.0) g/dL POC Hgb 15.0 (12.0-16.0) g/dl Hct (37-47) % POC Hct 44 (37-47) % MCV (80-100) fL MCH (25-34) pg MCHC (32-36) g/dL RDW Std Deviation (36.4-46.3) fL RDW Coeff of Asael (11.5-14.5) % Plt Count (130-400) K/uL MPV (7.4-10.4) fL Immature Gran % (Auto) % Neut % (Auto) % Lymph % (Auto) % [place] % (Auto) % Eos % (Auto) % Baso % (Auto) % Neut # (Auto) (1.4-6.5) K/uL Lymph # (Auto) (1.2-3.4) K/uL [place] # (Auto) (0.11-0.59) K/uL Eos # (Auto) (0-0.5) K/uL Baso # (Auto) (0-0.2) K/uL Immature Gran # (Auto) (0.00-0.02) K/uL PT 11.7 (9.0-12.0) Seconds INR 1.1 (0.9-1.1) APTT 29.3 (21.0-31.0) Seconds PTT Ratio 1.1 POC Sodium 133 L (135-144) mmol/L Sodium (136-145) mmol/L POC Potassium 3.9 (3.3-5.0) mmol/L Potassium (3.5-5.1) mmol/L POC Chloride 90 L (101-112) mmol/L Chloride (98-107) mmol/L Carbon Dioxide (21-32) mmol/L POC Total CO2 33 H (24-31) mmol/L Anion Gap (3-11) POC Anion Gap 15.0 L (16-25) mmol/L POC BUN 24 H (7-18) mg/dl BUN (7-18) mg/dl Creatinine (0.6-1.2) mg/dl POC Creatinine 0.8 (0.6-1.3) mg/dl Est Cr Clr Drug Dosing ml/min Est GFR ( Amer) Est GFR (Non-Af Amer) BUN/Creatinine Ratio (10-20) Glucose (70-99) mg/dl POC Glucose (other) 298 H (70-99) mg/dl Calcium (8.5-10.1) mg/dl POC Ioniz Calcium Roxi 1.13 (1.12-1.32) mmol/l Magnesium (1.8-2.4) mg/dl Total Bilirubin (0.2-1) mg/dl AST (15-37) U/L ALT (12-78) U/L Alkaline Phosphatase (45-117) U/L Troponin I (0-0.045) ng/ml Total Protein (6.4-8.2) gm/dl Albumin (3.4-5.0) gm/dl Globulin (2.5-4.0) gm/dl Albumin/Globulin Ratio (0.9-2) Lipase (73-393) U/L Procalcitonin (0-0.5) ng/ml Urine Color Urine Appearance (Clear) Urine pH (4.5-7.5) Ur Specific [place] (1.000-1.030) Urine Protein (Negative) Urine Glucose (UA) (Negative) Urine Ketones (Negative) Urine Blood (Negative) Urine Nitrite (Negative) Urine Bilirubin (Negative) Urine Urobilinogen (Negative) Ur Leukocyte Esterase (Negative) Urine WBC (Auto) (0-5) /hpf Urine RBC (Auto) (0-4) /hpf U Hyaline Cast (Auto) (0-5) /lpf U Epithel Cells (Auto) (0-5) /lpf Urine Bacteria (Auto) (Negative) Urine Yeast Gastric Fluid pH 4 Gastric Occult Blood Positive A (Negative) 02/26/20 Range/Units 00:40 WBC (4.8-10.8) K/uL RBC (4.2-5.4) M/uL Hgb (12.0-16.0) g/dL POC Hgb (12.0-16.0) g/dl Hct (37-47) % POC Hct (37-47) % MCV (80-100) fL MCH (25-34) pg MCHC (32-36) g/dL RDW Std Deviation (36.4-46.3) fL RDW Coeff of Asael (11.5-14.5) % Plt Count (130-400) K/uL MPV (7.4-10.4) fL Immature Gran % (Auto) % Neut % (Auto) % Lymph % (Auto) % [place] % (Auto) % Eos % (Auto) % Baso % (Auto) % Neut # (Auto) (1.4-6.5) K/uL Lymph # (Auto) (1.2-3.4) K/uL [place] # (Auto) (0.11-0.59) K/uL Eos # (Auto) (0-0.5) K/uL Baso # (Auto) (0-0.2) K/uL Immature Gran # (Auto) (0.00-0.02) K/uL PT (9.0-12.0) Seconds INR (0.9-1.1) APTT (21.0-31.0) Seconds PTT Ratio POC Sodium (135-144) mmol/L Sodium (136-145) mmol/L POC Potassium (3.3-5.0) mmol/L Potassium (3.5-5.1) mmol/L POC Chloride (101-112) mmol/L Chloride (98-107) mmol/L Carbon Dioxide (21-32) mmol/L POC Total CO2 (24-31) mmol/L Anion Gap (3-11) POC Anion Gap (16-25) mmol/L POC BUN (7-18) mg/dl BUN (7-18) mg/dl Creatinine (0.6-1.2) mg/dl POC Creatinine (0.6-1.3) mg/dl Est Cr Clr Drug Dosing ml/min Est GFR ( Amer) Est GFR (Non-Af Amer) BUN/Creatinine Ratio (10-20) Glucose (70-99) mg/dl POC Glucose (other) (70-99) mg/dl Calcium (8.5-10.1) mg/dl POC Ioniz Calcium Roxi (1.12-1.32) mmol/l Magnesium (1.8-2.4) mg/dl Total Bilirubin (0.2-1) mg/dl AST (15-37) U/L ALT (12-78) U/L Alkaline Phosphatase (45-117) U/L Troponin I (0-0.045) ng/ml Total Protein (6.4-8.2) gm/dl Albumin (3.4-5.0) gm/dl Globulin (2.5-4.0) gm/dl Albumin/Globulin Ratio (0.9-2) Lipase (73-393) U/L Procalcitonin (0-0.5) ng/ml Urine Color Dark Yellow Urine Appearance Turbid A (Clear) Urine pH 7.0 (4.5-7.5) Ur Specific [place] 1.040 H (1.000-1.030) Urine Protein Trace H (Negative) Urine Glucose (UA) Negative (Negative) Urine Ketones Negative (Negative) Urine Blood 2+ H (Negative) Urine Nitrite Negative (Negative) Urine Bilirubin 2+ H (Negative) Urine Urobilinogen Negative (Negative) Ur Leukocyte Esterase 3+ H (Negative) Urine WBC (Auto) >30 H (0-5) /hpf Urine RBC (Auto) 5-10 H (0-4) /hpf U Hyaline Cast (Auto) 1-5 (0-5) /lpf U Epithel Cells (Auto) 5-10 H (0-5) /lpf Urine Bacteria (Auto) 4+ H (Negative) Urine Yeast Not Reportable Gastric Fluid pH Gastric Occult Blood (Negative) Imaging Data Radiologist's Impression: CT abdomen pelvis with contrast: The stomach and proximal duodenum are markedly distended. There is a large diffuse mass in the region of the pancreas encasing the superior mesenteric artery. This is likely causing obstruction in the region of the transverse duodenum. There is a large hiatus hernia. Severe intra-hepatic bile duct dilation which appears markedly worsened relative to the prior CT October 11, 2019. Persistent severe pancreatic ductal dilation. ECG Data Attestation: I personally reviewed and interpreted this ECG as follows: Indication: abdominal pain Rate (beats per minute): 74 Rhythm: normal sinus Findings: + Q waves (Anteroseptal); no ST depression and no ST elevation Comparison ECG Date: from (01/26/2018) Change: the following changes noted (New anteroseptal infarct) MDM Narrative This patient presents during a period of high-volume and high acuity. This is an 84-year-old female who presents emergency department complaining of abdominal pain. The patient has a known pancreatic mass. Using shared medical decision making with the patient and her daughter decision was made to send the patient for CAT scan of the abdomen pelvis. This is concerning for an obstruction caused by the mass. In addition the patient was found to be grossly elevated has elevated LFTs. The patient would not like anything done however would like to be made comfortable. I did discuss the case with the hospitalist service who did agree to meet the patient. In the meantime patient was given Dilaudid here in the emergency department as well as Protonix Reglan and Zofran. Patient and daughter are in agreement with the treatment plan. Patient was seen and evaluated as above in room B5 . Review was performed of nursing notes and vital signs. I did review pertinent previous visits and patient history. After obtaining a thorough history and physical examination the above work up was performed. While in the department, I personally reevaluated the patient several times and each time the patient was found to be resting comfortably. The patient was educated upon management, educated upon todays findings/results, educated upon importance of follow up from today's visit, educated upon symptoms in which to return, had questions answered prior to discharge, verbalized understanding, and was discharged home in good condition. An order was placed for continuous cardiac monitoring. The monitor shows a rate of 61 with Normal SInus rhythm. The patient was evaluated during the global COVID-19 pandemic, and that diagnosis was suspected/considered upon their initial presentation. Their evaluation, treatment and testing was consistent with current guidelines for patients who present with complaints or symptoms that may be related to COVID- 19. Impression & Plan Primary adenocarcinoma of head of pancreas, Abdominal pain, Hyponatremia, UTI (urinary tract infection), Elevated LFTs Critical Care Time I have personally spent greater than 30 minutes of critical care time in the direct management of this patient. This includes bedside care, interpretation of diagnostic studies, and testing, discussion with consultants, patient, and family members, and other required patient management activities. This 30 minutes is in excess of all separately billable procedures. Discharge Plan Visit Data Chief Complaint: Abdominal Pain Stated Complaint: ABDOMINAL PAIN/lt. upper ED Provider: Ang Green Discharge Problem: Primary adenocarcinoma of head of pancreas, Abdominal pain, Hyponatremia, UTI (urinary tract infection), Elevated LFTs Patient Disposition: Admitted As Inpatient Discharge Instructions Interventions: ED Discharge Assessment Last Done: 02/26/20 03:15 Discharge Problem: Abdominal pain Qualifiers: Abdominal location: unspecified location Qualified Code(s): R10.9 - Unspecified abdominal pain UTI (urinary tract infection) Qualifiers: Urinary tract infection type: site unspecified Hematuria presence: without hematuria Qualified Code(s): N39.0 - Urinary tract infection, site not specified
[2020-02-25 23:34] LABS: Basophils # (auto) 0.01 K/uL (0-0.2); Basophils % (auto) 0.2 %; Eosinophils # (auto) 0.03 K/uL (0-0.5); Eosinophils % (auto) 0.5 %; Hematocrit (blood only) 37.4 % (37-47); Hemoglobin 12.7 g/dL (12.0-16.0); Immature Granulocytes # (auto) 0.02 K/uL (0.00-0.02); Immature Granulocytes % (auto) 0.3 %; Lymphocytes # (auto) 1.01 K/uL (1.2-3.4); Lymphocytes % (auto) 15.7 %; Mean Corpuscular Hemoglobin 32.9 pg (25-34); Mean Corpuscular Volume 96.9 fL (80-100); Mean Platelet Volume 10.7 fL (7.4-10.4); Monocytes # (auto) 0.94 K/uL (0.11-0.59); Monocytes % (auto) 14.6 %; Neutrophils # (auto) 4.43 K/uL (1.4-6.5); Neutrophils % (auto) 68.7 %; Platelet Count 321 K/uL (130-400); RDW Coefficient of Variation 14.9 % (11.5-14.5); RDW Standard Deviation 52.5 fL (36.4-46.3); Red Blood Count 3.86 M/uL (4.2-5.4); White Blood Count 6.44 K/uL (4.8-10.8)
[2020-02-25] MEDS: HYDROmorphone INJ 0.5 MG/0.5 ML SYR IV PRN (23:37)
[2020-02-25 23:43] LABS: iSTAT Creatinine 0.8 mg/dl (0.6-1.3); iSTAT Ionized Calcium 1.13 mmol/l (1.12-1.32); iSTAT Potassium 3.9 mmol/L (3.3-5.0)
[2020-02-25 23:49] LABS: INR 1.1 (0.9-1.1); Partial Thromboplastin Ratio 1.1; Partial Thromboplastin Time 29.3 Seconds (21.0-31.0); Prothrombin Time 11.7 Seconds (9.0-12.0)
[2020-02-25 23:53] LABS: BUN Creatinine Ratio 22.9 (10-20); Calcium 9.3 mg/dl (8.5-10.1); Creatinine Clr Calc Pharmacy 32.6 ml/min; Est GFR (African American) 63.7; Est GFR (Non-African American) 54.9; Magnesium 1.9 mg/dl (1.8-2.4); Potassium 3.8 mmol/L (3.5-5.1)
[2020-02-25 23:53] LABS: Gastric Occult Blood Positive (Negative); pH Gastric Fluid 4
[2020-02-25] MEDS ORDERED: IOVERSOL 100ml IV ONE (23:55)
[2020-02-26 00:05] LABS: Albumin Globulin Ratio 0.9 (0.9-2); Bilirubin,Total 7.4 mg/dl (0.2-1); Globulin 3.2 gm/dl (2.5-4.0); Total Protein 6.2 gm/dl (6.4-8.2); Troponin I 0.298 ng/ml (0-0.045)
[2020-02-26 01:03] LABS: Appearance Urine Turbid (Clear); Bacteria Urine Automated 4+ (Negative); Blood Urine 2+ (Negative); Color Urine Dark Yellow; Glucose Urine UA Negative (Negative); Ketones Urine Negative (Negative); Leukocyte Esterase Urine 3+ (Negative); Nitrite Urine Negative (Negative); Protein Urine Trace (Negative); Urobilinogen Urine Negative (Negative); WBC Urine Automated >30 /hpf (0-5)
[2020-02-26 01:20] LABS: Bilirubin Urine 2+ (Negative)
[2020-02-26 01:21] LABS: Ictotest Urine Positive (Negative)
[2020-02-26] MEDS ORDERED: PANTOprazole 40 MG in SYRINGE 0 ML IV ONE (01:48)
[2020-02-26] MEDS: HYDROmorphone INJ 0.5 MG/0.5 ML SYR IV PRN (02:13)
[2020-02-26] MEDS ORDERED: HYDROmorphone INJ 0.5 MG/0.5 ML SYR IV STA (02:50)
--- NOTE | 2020-02-26 03:14 | History & Physical Report ---
Date of Service February 26, 2020 Assessment & Plan (1) Abdominal pain: Patient with 3 days of worsening epigastric discomfort, similar to heartburn symptoms. Abdominal exam is benign. Imaging suggestive of progression of pancreatic malignancy. ?Heartburn, ?pancreatic CA, ?obstruction as cause of discomfort -Admit to medical floor -Tylenol TID -Dilaudid 0.25mg IV PRN -Maalox PRN -Protonix 40mg IV daily Present on Admission?: Yes (2) 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 Patient does not wish to pursue aggressive measures. I briefly discussed Palliative Care, possible hospice services with patient. She was interested in speaking with the Palliative team. -Palliative care consultation appreciated -Daughter POC - Olamide - [phone] Present on Admission?: Yes (3) Impaired fasting glucose: Elevated blood sugar in setting of pancreatic cancer -Noted -Continue to monitor Present on Admission?: Yes (4) Depression: Chronic -Continue Lexapro Present on Admission?: Yes (5) HTN (hypertension): Blood pressure stable -Continue Metoprolol 25mg po BID -Continue to monitor Present on Admission?: Yes (6) Hyperlipidemia: Chronic -Hold [place] 3 for now Present on Admission?: Yes (7) CKD (chronic kidney disease) stage 3, GFR 30-59 ml/min: Elevated BUN=21, Cr near baseline. Patient reports adequate UOP, electrolytes are reasonable -Avoid nephrotoxic agents -Montior BUN/Cr/electrolytes and UOP (8) GERD (gastroesophageal reflux disease): Patient with epigastric pain as above -Protonix 40mg IV daily -Maalox PRN Present on Admission?: Yes (9) Hyponatremia: Ur=837. No neurological deficits -Continue to monitor -NSS x 500 mL Present on Admission?: Yes (10) UTI (urinary tract infection): +UA -Ceftriaxone F/E/N- NSS at 80 mL/hr x 500mL, monitor electrolytes, clear liquid diet as tolerated Ppx - Lovenox Code - DNR/DNI per discussion with patient, daughter at bedside Dispo - Admit to medical floor POC - Olamide (daughter) [phone] History of Present Illness Chief Complaint: abdominal pain Primary Care Provider: JULIA Kearney Celeste Heck is an 84yo C female with history of pancreatic adenocarcinoma, HTN, HLP, GERD presenting with abdominal pain. Pain is central/epigastric burning ongoing x 3 days. She has mild nausea with one episode of vomiting. Patient had ongoing diarrhea for the last 7 months however, that has decreased. Last BM was yesterday. Decreased PO but patient is able to tolerate oral intake at this time. Diffuse abdominal pain at baseline with radiation to the back - Tylenol at home with some relief. No additional complaints at this time. Patient denies fevers/chills/dysuria. Patient is well aware of her diagnosis of pancreatic cancer and the poor prognosis of this disease. She does not wish to pursue aggressive therapies. Daughter is at bedside. ER Course: Maalox, Dilaudid 0.25mg, Reglan 5mg IV, Protonix 40mg IV, NSS 500mL Allergies Allergy/AdvReac Type Severity Reaction Status Date / Time Sulfa (Sulfonamide Allergy Unknown sweats - ? Verified 02/26/20 00:39 Antibiotics) can't remember Home Medications Home Medications Medication Instructions Recorded Confirmed Type cyclosporine 1 drp OPHTHALMIC (EYE) Q12H #0 10/08/11 02/26/20 History multivitamin 1 tab PO QAM #0 10/08/11 02/26/20 History [place]-3 1 tab PO QAM #0 01/19/18 02/26/20 History aspirin 81 mg PO QPM #0 01/19/18 02/26/20 History timolol 1 drp OPHTHALMIC (EYE) BID #0 01/19/18 02/26/20 History acetaminophen [Pain Reliever] 1,000 mg PO Q8 #180 tab 02/25/18 02/26/20 Rx escitalopram oxalate 10 mg tablet 10 mg PO QAM #90 tab 03/30/19 02/26/20 Rx metoprolol tartrate 25 mg tablet 25 mg PO BID #180 tab 03/30/19 02/26/20 Rx tolterodine 2 mg capsule,extended 2 mg PO HS 90 Days #90 cap 03/30/19 02/26/20 Rx release 24 hr cholecalciferol (vitamin D3) 50 2,000 units PO DAILY #30 cap 04/16/19 02/26/20 Rx mcg (2,000 unit) capsule loperamide [Imodium] 2 mg PO DIRECTED PRN 02/26/20 02/26/20 History omeprazole 20 mg PO DAILY 02/26/20 02/26/20 History Past Med/Surg History Medical History (Updated 02/26/20 @ 03:12 by Veena Briceño DO) CKD (chronic kidney disease) stage 3, GFR 30-59 ml/min Degenerative disc disease GERD (gastroesophageal reflux disease) Hiatal hernia History of fracture of patella Hx of cataract Lichen sclerosus et atrophicus Low back pain Macular degeneration Metabolic encephalopathy Pneumonia Primary adenocarcinoma of head of pancreas Surgical History H/O colonoscopy History of lumbar laminectomy History of total knee arthroplasty RIGHT-- 07/16/16 at [facility], SAB and regional block without issues Hx of hysterectomy Hx of repair of rotator cuff BOTH Total knee replacement status Family History Sister Breast cancer Brother Colon cancer Prostate cancer Father Myocardial infarction Denies family history of Ovarian cancer Social History Smoking Status: Never smoker Second Hand Exposure: No; Hx Alcohol Use: No Hx Substance Use: No Preferred Language: Malian Communication Ability: Effective Visual Impairment: No Limitations Beliefs That Will Affect Care: None marital status: / Current Living Situation: Alone current occupational status: retired Feels Safe at Home: Yes caffeine: No Dental Care, Regularly: No Physical Activity Frequency: Does not Exercise Seatbelt Use: always Sunscreen Use: Yes Review of Systems Review of Systems: All systems reviewed & are unremarkable except as noted in HPI & below Physical Exam Physical Exam: General: thin, cachectic female patient resting comfortably, NAD, chronically ill in appearance, AA&O x 4 Skin: warm, dry, intact, no rashes or lesions, +Jaundice, +Icterus HEENT: NC/AT, PERRL, EOMI, anicteric sclera, conjunctiva without injection, external ear normal to inspection and nontender, nares patent, dry mucus membranes, dentition intact, no oropharyngeal lesions, neck supple, trachea midline, no LAD, no thyromegaly, no JVD Heart: +S1/S2, regular with frequent ectopy, no m/r/g Lungs: equal air entry bilaterally, no rales/rhonchi/wheezes Abd: +BS, soft, ND, tender with epigastric palpation, no masses/organomegaly/ascites Ext: warm, 2+ pulses in UE/LE bilaterally, no clubbing/cyanosis or edema Neuro: nonfocal, patient AA&O x 4, speech intact, no facial droop, moving all extremities on command with equal strength 5/5 Results & Data Results & Data ([facility]) Vital Signs (Past 12 Hours) Vital Signs Temp Pulse Resp BP Pulse Ox 02/26/20 01:30 72 18 145/88 H 95 02/26/20 01:00 74 17 149/89 H 95 02/26/20 00:30 75 20 137/75 93 02/26/20 00:00 74 17 121/82 92 02/25/20 23:31 74 23 141/90 H 96 02/25/20 23:22 36.6 C 71 18 157/101 H 95 Laboratory Results Lab Results 02/25/20 02/25/20 02/25/20 Range/Units 23:15 23:15 23:15 WBC 6.44 (4.8-10.8) K/uL RBC 3.86 L (4.2-5.4) M/uL Hgb 12.7 (12.0-16.0) g/dL POC Hgb (12.0-16.0) g/dl Hct 37.4 (37-47) % POC Hct (37-47) % MCV 96.9 (80-100) fL MCH 32.9 (25-34) pg MCHC 34.0 (32-36) g/dL RDW Std Deviation 52.5 H (36.4-46.3) fL RDW Coeff of Asael 14.9 H (11.5-14.5) % Plt Count 321 (130-400) K/uL MPV 10.7 H (7.4-10.4) fL Immature Gran % (Auto) 0.3 % Neut % (Auto) 68.7 % Lymph % (Auto) 15.7 % [place] % (Auto) 14.6 % Eos % (Auto) 0.5 % Baso % (Auto) 0.2 % Neut # (Auto) 4.43 (1.4-6.5) K/uL Lymph # (Auto) 1.01 L (1.2-3.4) K/uL [place] # (Auto) 0.94 H (0.11-0.59) K/uL Eos # (Auto) 0.03 (0-0.5) K/uL Baso # (Auto) 0.01 (0-0.2) K/uL Immature Gran # (Auto) 0.02 (0.00-0.02) K/uL PT (9.0-12.0) Seconds INR (0.9-1.1) APTT (21.0-31.0) Seconds PTT Ratio POC Sodium (135-144) mmol/L Sodium 132 L (136-145) mmol/L POC Potassium (3.3-5.0) mmol/L Potassium 3.8 (3.5-5.1) mmol/L POC Chloride (101-112) mmol/L Chloride 93 L (98-107) mmol/L Carbon Dioxide 33 H (21-32) mmol/L POC Total CO2 (24-31) mmol/L Anion Gap 6.0 (3-11) POC Anion Gap (16-25) mmol/L POC BUN (7-18) mg/dl BUN 21 H (7-18) mg/dl Creatinine 0.94 (0.6-1.2) mg/dl POC Creatinine (0.6-1.3) mg/dl Est Cr Clr Drug Dosing 32.6 ml/min Est GFR ( Amer) 63.7 Est GFR (Non-Af Amer) 54.9 BUN/Creatinine Ratio 22.9 H (10-20) Glucose 283 H (70-99) mg/dl POC Glucose (other) (70-99) mg/dl Calcium 9.3 (8.5-10.1) mg/dl POC Ioniz Calcium Roxi (1.12-1.32) mmol/l Magnesium 1.9 (1.8-2.4) mg/dl Total Bilirubin 7.4 H (0.2-1) mg/dl AST 261 H (15-37) U/L ALT 382 H (12-78) U/L Alkaline Phosphatase 842 H (45-117) U/L Troponin I 0.298 H* (0-0.045) ng/ml Total Protein 6.2 L (6.4-8.2) gm/dl Albumin 3.0 L (3.4-5.0) gm/dl Globulin 3.2 (2.5-4.0) gm/dl Albumin/Globulin Ratio 0.9 (0.9-2) Lipase 15 L (73-393) U/L Procalcitonin 0.90 H (0-0.5) ng/ml Urine Color Urine Appearance (Clear) Urine pH (4.5-7.5) Ur Specific [place] (1.000-1.030) Urine Protein (Negative) Urine Glucose (UA) (Negative) Urine Ketones (Negative) Urine Blood (Negative) Urine Nitrite (Negative) Urine Bilirubin (Negative) Urine Urobilinogen (Negative) Ur Leukocyte Esterase (Negative) Urine WBC (Auto) (0-5) /hpf Urine RBC (Auto) (0-4) /hpf U Hyaline Cast (Auto) (0-5) /lpf U Epithel Cells (Auto) (0-5) /lpf Urine Bacteria (Auto) (Negative) Urine Yeast Gastric Fluid pH Gastric Occult Blood (Negative) 02/25/20 02/25/20 02/25/20 Range/Units 23:15 23:30 23:40 WBC (4.8-10.8) K/uL RBC (4.2-5.4) M/uL Hgb (12.0-16.0) g/dL POC Hgb 15.0 (12.0-16.0) g/dl Hct (37-47) % POC Hct 44 (37-47) % MCV (80-100) fL MCH (25-34) pg MCHC (32-36) g/dL RDW Std Deviation (36.4-46.3) fL RDW Coeff of Asael (11.5-14.5) % Plt Count (130-400) K/uL MPV (7.4-10.4) fL Immature Gran % (Auto) % Neut % (Auto) % Lymph % (Auto) % [place] % (Auto) % Eos % (Auto) % Baso % (Auto) % Neut # (Auto) (1.4-6.5) K/uL Lymph # (Auto) (1.2-3.4) K/uL [place] # (Auto) (0.11-0.59) K/uL Eos # (Auto) (0-0.5) K/uL Baso # (Auto) (0-0.2) K/uL Immature Gran # (Auto) (0.00-0.02) K/uL PT 11.7 (9.0-12.0) Seconds INR 1.1 (0.9-1.1) APTT 29.3 (21.0-31.0) Seconds PTT Ratio 1.1 POC Sodium 133 L (135-144) mmol/L Sodium (136-145) mmol/L POC Potassium 3.9 (3.3-5.0) mmol/L Potassium (3.5-5.1) mmol/L POC Chloride 90 L (101-112) mmol/L Chloride (98-107) mmol/L Carbon Dioxide (21-32) mmol/L POC Total CO2 33 H (24-31) mmol/L Anion Gap (3-11) POC Anion Gap 15.0 L (16-25) mmol/L POC BUN 24 H (7-18) mg/dl BUN (7-18) mg/dl Creatinine (0.6-1.2) mg/dl POC Creatinine 0.8 (0.6-1.3) mg/dl Est Cr Clr Drug Dosing ml/min Est GFR ( Amer) Est GFR (Non-Af Amer) BUN/Creatinine Ratio (10-20) Glucose (70-99) mg/dl POC Glucose (other) 298 H (70-99) mg/dl Calcium (8.5-10.1) mg/dl POC Ioniz Calcium [place]ox[place] 1.13 (1.12-1.32) mmol/l Magnesium (1.8-2.4) mg/dl Total Bilirubin (0.2-1) mg/dl AST (15-37) U/L ALT (12-78) U/L Alkaline Phosphatase (45-117) U/L Troponin I (0-0.045) ng/ml Total Protein (6.4-8.2) gm/dl Albumin (3.4-5.0) gm/dl Globulin (2.5-4.0) gm/dl Albumin/Globulin Ratio (0.9-2) Lipase (73-393) U/L Procalcitonin (0-0.5) ng/ml Urine Color Urine Appearance (Clear) Urine pH (4.5-7.5) Ur Specific [place] (1.000-1.030) Urine Protein (Negative) Urine Glucose (UA) (Negative) Urine Ketones (Negative) Urine Blood (Negative) Urine Nitrite (Negative) Urine Bilirubin (Negative) Urine Urobilinogen (Negative) Ur Leukocyte Esterase (Negative) Urine WBC (Auto) (0-5) /hpf Urine RBC (Auto) (0-4) /hpf U Hyaline Cast (Auto) (0-5) /lpf U Epithel Cells (Auto) (0-5) /lpf Urine Bacteria (Auto) (Negative) Urine Yeast Gastric Fluid pH 4 Gastric Occult Blood Positive A (Negative) 02/26/20 Range/Units 00:40 WBC (4.8-10.8) K/uL RBC (4.2-5.4) M/uL Hgb (12.0-16.0) g/dL POC Hgb (12.0-16.0) g/dl Hct (37-47) % POC Hct (37-47) % MCV (80-100) fL MCH (25-34) pg MCHC (32-36) g/dL RDW Std Deviation (36.4-46.3) fL RDW Coeff of Asael (11.5-14.5) % Plt Count (130-400) K/uL MPV (7.4-10.4) fL Immature Gran % (Auto) % Neut % (Auto) % Lymph % (Auto) % [place] % (Auto) % Eos % (Auto) % Baso % (Auto) % Neut # (Auto) (1.4-6.5) K/uL Lymph # (Auto) (1.2-3.4) K/uL [place] # (Auto) (0.11-0.59) K/uL Eos # (Auto) (0-0.5) K/uL Baso # (Auto) (0-0.2) K/uL Immature Gran # (Auto) (0.00-0.02) K/uL PT (9.0-12.0) Seconds INR (0.9-1.1) APTT (21.0-31.0) Seconds PTT Ratio POC Sodium (135-144) mmol/L Sodium (136-145) mmol/L POC Potassium (3.3-5.0) mmol/L Potassium (3.5-5.1) mmol/L POC Chloride (101-112) mmol/L Chloride (98-107) mmol/L Carbon Dioxide (21-32) mmol/L POC Total CO2 (24-31) mmol/L Anion Gap (3-11) POC Anion Gap (16-25) mmol/L POC BUN (7-18) mg/dl BUN (7-18) mg/dl Creatinine (0.6-1.2) mg/dl POC Creatinine (0.6-1.3) mg/dl Est Cr Clr Drug Dosing ml/min Est GFR ( Amer) Est GFR (Non-Af Amer) BUN/Creatinine Ratio (10-20) Glucose (70-99) mg/dl POC Glucose (other) (70-99) mg/dl Calcium (8.5-10.1) mg/dl POC Ioniz Calcium [place]ox[place] (1.12-1.32) mmol/l Magnesium (1.8-2.4) mg/dl Total Bilirubin (0.2-1) mg/dl AST (15-37) U/L ALT (12-78) U/L Alkaline Phosphatase (45-117) U/L Troponin I (0-0.045) ng/ml Total Protein (6.4-8.2) gm/dl Albumin (3.4-5.0) gm/dl Globulin (2.5-4.0) gm/dl Albumin/Globulin Ratio (0.9-2) Lipase (73-393) U/L Procalcitonin (0-0.5) ng/ml Urine Color Dark Yellow Urine Appearance Turbid A (Clear) Urine pH 7.0 (4.5-7.5) Ur Specific [place] 1.040 H (1.000-1.030) Urine Protein Trace H (Negative) Urine Glucose (UA) Negative (Negative) Urine Ketones Negative (Negative) Urine Blood 2+ H (Negative) Urine Nitrite Negative (Negative) Urine Bilirubin 2+ H (Negative) Urine Urobilinogen Negative (Negative) Ur Leukocyte Esterase 3+ H (Negative) Urine WBC (Auto) >30 H (0-5) /hpf Urine RBC (Auto) 5-10 H (0-4) /hpf U Hyaline Cast (Auto) 1-5 (0-5) /lpf U Epithel Cells (Auto) 5-10 H (0-5) /lpf Urine Bacteria (Auto) 4+ H (Negative) Urine Yeast Not Reportable Gastric Fluid pH Gastric Occult Blood (Negative) Diagnostic Findings CXR - by my interpretation - no acute process CT Abdomen and Pelvis with contrast: The stomach and proximal duodenum are markedly distended. There is a large diffuse mass in the region of the pancreas encasing the superior mesenteric artery. This is likely causing obstruction in the region of the transverse duodenum. There is a large hiatus hernia. Severe intrahepatic bile duct dilatation which appears markedly worsened relative to prior CT October 11, 2019. Persistent severe pancreatic ductal dilatation ECG Additional Comments: EKG with NSR at 74, normal axis, TO=817, PSO=856, QTc prolonged at 530, TWI present in anterior leads Code Status & VTE Plan Code Status DNR VTE Prophylaxis Plan VTE Prophylaxis will be ordered: Yes PG Care Time/CCT Total # of Minutes Spent Total Time Spent with Patient: Total time spent is greater than 50% in coordination of care (as documented) at patient's floor/unit and/or counseling patient: Coding Level of Care Code 02968 Initial Inpt Care Lvl 3 Diagnoses Abdominal pain R10.13 Abdominal location: epigastric Primary adenocarcinoma of head of pancreas C25.0 Impaired fasting glucose R73.01 Depression F32.9 Depression Type: major depressive disorder Major depression recurrence: unspecified whether recurrent Active/Remission status: remission status unspecified HTN (hypertension) I10 Hypertension type: essential hypertension Hyperlipidemia E78.5 Hyperlipidemia type: unspecified CKD (chronic kidney disease) stage 3, GFR 30-59 ml/min N18.3 GERD (gastroesophageal reflux disease) K21.9 Esophagitis presence: esophagitis presence not specified Hyponatremia E87.1 UTI (urinary tract infection) N39.0 Urinary tract infection type: site unspecified Hematuria presence: without hematuria (1) Depression Depression Type: major depressive disorder Major depression recurrence: unspecified whether recurrent Active/Remission status: remission status unspecified Qualified Code(s): F32.9 - Major depressive disorder, single episode, unspecified (2) HTN (hypertension) Hypertension type: essential hypertension Qualified Code(s): I10 - Essential (primary) hypertension (3) Hyperlipidemia Hyperlipidemia type: unspecified Qualified Code(s): E78.5 - Hyperlipidemia, unspecified (4) GERD (gastroesophageal reflux disease) Esophagitis presence: esophagitis presence not specified Qualified Code(s): K21.9 - Gastro-esophageal reflux disease without esophagitis (5) Abdominal pain Abdominal location: epigastric Qualified Code(s): R10.13 - Epigastric pain (6) UTI (urinary tract infection) Urinary tract infection type: site unspecified Hematuria presence: without hematuria Qualified Code(s): N39.0 - Urinary tract infection, site not specified
[2020-02-26] MEDS ORDERED: HYDROmorphone INJ 0.5 MG/0.5 ML SYR IV PRN (04:25)
[2020-02-26] MEDS ORDERED: SODIUM CHLORIDE 0.9% 500 ML IV SCH (04:25)
[2020-02-26] MEDS ORDERED: DOCUSATE SODIUM 100 MG CAP PO PRN (04:25)
[2020-02-26] MEDS ORDERED: ONDANSETRON INJ 2 MG/ML 2 ML VIAL IV PRN (04:25)
[2020-02-26] MEDS: cefTRIAXone SODIUM 1,000 MG in DEXTROSE 5% 50 ML IV SCH (05:48)
[2020-02-26] MEDS: ACETAMINOPHEN 500 MG TAB PO SCH ×2 (06:45→14:52)
--- NOTE | 2020-02-26 07:35 | CT Scan Report ---
CT abd pelvis IV con only CLINICAL HISTORY: Generalized abdominal pain. History of pancreatic cancer. COMPARISON STUDY: 10/11/2019 TECHNIQUE: The patient was scanned in a dynamic helical fashion during intravenous administration of 94 cc of Optiray 320 A dose lowering technique was utilized adhering to the principles of ALARA. CT DOSE: 264.63 mGy.cm FINDINGS: Lower chest: There is a hiatal hernia with a paraesophageal component. Liver: There is intrahepatic biliary ductal dilatation. The hepatic and portal veins appear patent. N o focal hepatic masses are visualized Gallbladder: Surgically absent Spleen: Normal in size and attenuation. Pancreas: There is pancreatic parenchymal atrophy. The pancreatic duct is dilated measuring 8 mm. The re is a pancreatic head mass encasing the superior mesenteric artery measuring approximately 4 cm. Adrenal glands: Unremarkable. Kidneys: There is no hydronephrosis. There is a 15 mm left renal cortical cyst Bowel: The stomach and duodenum are dilated to the level of the transverse duodenum. There are multip le fluid-filled bowel loops. There is mild diffuse colonic wall thickening. Pelvic small bowel loops are borderline dilated measuring up to 3 cm in diameter. Peritoneum: There is trace ascites. There is no free intraperitoneal air. Vasculature: The abdominal aorta is normal in course and caliber. Adenopathy: There are borderline enlarged lymph nodes in the region of the gastrohepatic ligament Pelvic viscera: The uterus is surgically absent Skeletal structures: Postsurgical changes are present within the cervical spine. IMPRESSION: 1. Large pancreatic head mass with encasement of the superior mesenteric artery and secondary glandul ar atrophy and ductal dilatation 2. Dilated stomach and duodenum. Obstruction at the level the transverse duodenum due to the large pa ncreatic mass must be considered. 3. Hiatal hernia with a paraesophageal component 4. Marked intrahepatic biliary ductal dilatation 5. Diffuse colonic wall thickening ACT 112: Negative or not required by law. Electronically signed by: Rui Stewart M.D. 02/26/2020 7:33 AM
--- NOTE | 2020-02-26 08:05 | XRay Report ---
XR chest 1V portable CLINICAL HISTORY: SEPSIS COMPARISON STUDY: 06/06/2016 FINDINGS: The heart is enlarged. There is a retrocardiac opacity consistent with a hiatal hernia. The re is no failure. There is no focal pulmonary consolidation. There are no pleural effusions. Tapering of both distal clavicles, is likely postsurgical. There is contrast opacifying the renal collecting systems consistent with a recent CT scan. There is borderline dilatation of the right collecting syst em.[ IMPRESSION: 1. Cardiomegaly. 2. Hiatal hernia. 3. No acute findings. ACT 112: Negative or not required by law. Electronically signed by: Rui Stewart M.D. 02/26/2020 8:04 AM
[2020-02-26] MEDS: METOPROLOL TARTRATE 25 MG TAB PO SCH ×2 (09:13→21:10)
[2020-02-26] MEDS: TIMOLOL MALEATE 0.5% OP SOLN 5 ML BTL OP SCH ×2 (09:14→21:10)
[2020-02-26] MEDS: ESCITALOPRAM OXALATE 10 MG TAB PO SCH (09:15)
[2020-02-26] MEDS: ENOXAPARIN INJ 40 MG/0.4 ML SYR SQ SCH (09:17)
--- NOTE | 2020-02-26 10:24 | Electrocardiogram Report ---
Test Reason : Blood Pressure : / mmHG Vent. Rate : 074 BPM Atrial Rate : 074 BPM P-R Int : 136 ms QRS Dur : 118 ms QT Int : 478 ms P-R-T Axes : 074 052 061 degrees QTc Int : 530 ms Normal sinus rhythm Possible Left atrial enlargement Evolving Anteroseptal infarct (cited on or before in the Face of a LBBB (- concordance 2mm ST elevat ion) Left bundle branch block Prolonged QT Abnormal ECG When compared with ECG of 26-JAN-2018 10:36, Evolving Anterior HI is new Left bundle branch block is new T wave inversion now evident in Anterior leads QT has lengthened Confirmed by Zhou Louise ([id number]) on 02/26/2020 10:24:19 AM Referred By: REFERRED SELF Confirmed By:Zhou Loiuse
[2020-02-26] MEDS ORDERED: PANTOprazole 40 MG in SYRINGE 0 ML IV SCH (11:00)
[2020-02-26] MEDS: ALUMINUM/MAGNESIUM SUSP 30 ML UDC PO PRN (15:46)
[2020-02-26] MEDS ORDERED: oxyCODONE HCL IR 5 MG TAB (IMMEDIATE RELEASE) PO PRN (16:25)
--- NOTE | 2020-02-26 16:43 | History & Physical Bridge Note ---
Date of Service February 26, 2020 History & Physical Bridge Note I have examined the patient, reviewed the History & Physical and in the interval since the performance of the History & Physical I have noted the following changes of clinical significance: Pain much improved and actually gone since receiving IV dilaudid in ER. Had a BM this AM, tolerating po. Is ok with lab draws in the AM but does not want any GI intervention. A stent was attempted to be placed in October 2019 an was unsuccessful. She wishes to have a referral to Hospice. WIll d/w [employer]. Will try po oxycodone for pain if recurs. Daughter concerned about pt's ability to care for herself alone at home with opioids on board. She will try to think about home arrangements for pt. VSS NAD, AAOx3 RRR no mgr CTAB no wcr Abd +BS soft NT ND Ext no edema or calf tenderness Heartburn resolved. Will dc ASA Make tylenol prn rather than scheduled follow LFTs in AM start oxycodone po and keep IV dilaudid prn severe breakthrough pain Hospice referral tomorrow
[2020-02-26] MEDS ORDERED: ASPIRIN 81 MG ECTAB PO SCH (21:00)
[2020-02-26] MEDS: TOLTERODINE TARTRATE LA 2 MG CAPCR PO SCH (21:10)
[2020-02-27] MEDS: ACETAMINOPHEN 500 MG TAB PO PRN ×2 (02:11→21:52)
[2020-02-27] MEDS: cefTRIAXone SODIUM 1,000 MG in DEXTROSE 5% 50 ML IV SCH (04:58)
[2020-02-27 06:34] LABS: Basophils # (auto) 0.02 K/uL (0-0.2); Basophils % (auto) 0.3 %; Eosinophils # (auto) 0.16 K/uL (0-0.5); Eosinophils % (auto) 2.7 %; Hematocrit (blood only) 36.3 % (37-47); Immature Granulocytes # (auto) 0.02 K/uL (0.00-0.02); Immature Granulocytes % (auto) 0.3 %; Lymphocytes # (auto) 1.06 K/uL (1.2-3.4); Lymphocytes % (auto) 18.2 %; Mean Corpuscular Hemoglobin 32.4 pg (25-34); Mean Corpuscular Hgb Conc 33.1 g/dL (32-36); Mean Corpuscular Volume 98.1 fL (80-100); Mean Platelet Volume 10.9 fL (7.4-10.4); Monocytes # (auto) 0.71 K/uL (0.11-0.59); Monocytes % (auto) 12.2 %; Neutrophils # (auto) 3.87 K/uL (1.4-6.5); Neutrophils % (auto) 66.3 %; Platelet Count 320 K/uL (130-400); RDW Coefficient of Variation 15.3 % (11.5-14.5); RDW Standard Deviation 54.6 fL (36.4-46.3); White Blood Count 5.84 K/uL (4.8-10.8)
[2020-02-27 06:58] LABS: Albumin Level 2.4 gm/dl (3.4-5.0); BUN Creatinine Ratio 13.6 (10-20); Bilirubin Direct 5.7 mg/dl (0-0.2); Calcium 9.3 mg/dl (8.5-10.1); Creatinine Clr Calc Pharmacy 36.4 ml/min; Est GFR (African American) 79.8; Est GFR (Non-African American) 68.8; Potassium 4.1 mmol/L (3.5-5.1)
[2020-02-27 07:11] LABS: Bilirubin,Total 6.4 mg/dl (0.2-1); Total Protein 5.5 gm/dl (6.4-8.2)
[2020-02-27] MEDS: ESCITALOPRAM OXALATE 10 MG TAB PO SCH (09:04)
[2020-02-27] MEDS: METOPROLOL TARTRATE 25 MG TAB PO SCH ×2 (09:04→21:44)
[2020-02-27] MEDS: PANTOprazole 40 MG TAB PO SCH (09:05)
[2020-02-27] MEDS: ENOXAPARIN INJ 40 MG/0.4 ML SYR SQ SCH (09:05)
[2020-02-27] MEDS: TIMOLOL MALEATE 0.5% OP SOLN 5 ML BTL OP SCH ×2 (09:06→21:44)
--- NOTE | 2020-02-27 14:16 | Hospitalist Progress Note ---
Date of Service February 27, 2020 Assessment & Plan (1) Abdominal pain: Patient with 3 days of worsening epigastric discomfort, similar to heartburn symptoms. Imaging suggestive of progression of pancreatic malignancy and possible duodenum obstruction. Improved now after receiving IV dilaudid initially Now pain controlled for most part with Tylenol alone Some intermittent nausea but moving bowels and pain improved -started oxycodone prn so she can take this at home-she already has a Rx from her Oncologist, but has not taken a dose here yet -continue tylenol prn -bowels are moving -likely from pancreatic CA with large mass encasing SMA, possible dudenal obstruction -she does not want to be aggressive with intervention -will place GI consult to see if anything Palliative that can be done to help with pain from obstruction -Palliative Consult placed, discussed Hospice and comfort care and she is considering this (2) 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 Patient does not wish to pursue aggressive measures. Discussed Palliative Care, possible hospice services with patient. She was interested in speaking with the Palliative team. -Palliative care consultation appreciated -Daughter GEN - Olamide - [phone] -has declined chemotherapy and follows with Dr. Chaparro of [facility] (3) Elevated LFTs: Obstructive picture , secondary to mass slightly improved today follow LFTs (4) Impaired fasting glucose: Elevated blood sugar in setting of pancreatic cancer -Noted -Continue to monitor nothing to do (5) Depression: Chronic -Continue Lexapro (6) HTN (hypertension): Blood pressure stable -Continue Metoprolol 25mg po BID -Continue to monitor (7) Hyperlipidemia: Chronic -Hold [place] 3 for now (8) CKD (chronic kidney disease) stage 3, GFR 30-59 ml/min: Elevated BUN=21, Cr near baseline. Patient reports adequate UOP, electrolytes are reasonable -Avoid nephrotoxic agents -Montior BUN/Cr/electrolytes and UOP (9) GERD (gastroesophageal reflux disease): Patient with epigastric pain as above -Protonix 40mg IV daily was given and then converted to po PPI -Maalox PRN (10) Hyponatremia: Lr=536 on admission and now improved to 134 with IVFs. No neurological deficits -Continue to monitor encouraged po intake (11) UTI (urinary tract infection): +UA -Ceftriaxone Ur cx with GNR-awaiting ID and sensitivity Ppx - Lovenox Code - DNR/DNI Dispo -continued stay on medical floor POC - Olamide (daughter) [phone] Admission and Anticipated Discharge Date Admission Date: February 26, 2020 Subjective Pt was doing ok today but just came back from the BR and now feeling very nauseated. Some abd pain but not severe. Had a BM today. Is eating some food. Review of Systems Review of Systems: All systems reviewed & are unremarkable except as noted in HPI & below Physical Exam Constitutional: + thin and cooperative; no acute distress Eyes: + scleral abnormality (icterus) Neck: trachea midline, no thyromegaly Respiratory: normal respiratory effort, lungs clear to auscultation Cardiovascular: RRR, no murmur, no edema Chest (Breasts): Chest: normal inspection of chest Gastrointestinal (Abdomen): Inspection/Auscultation: normal bowel sounds; abdomen not distended Percussion/Palpation: + abdomen tender (mild, in epigastric region ) Musculoskeletal: Extremities: extremities normal to inspection; no cyanosis and no clubbing Skin: no rashes, warm and dry Neurologic: moves all extremities and awake; no focal motor deficits Psychiatric: Orientation: alert, oriented x 3 and cooperative Affect: + flat affect Lymphatic: no lymphedema Results & Data Results & Data ([facility]) Vital Signs (Past 12 Hours) Vital Signs Temp Pulse Resp BP Pulse Ox 02/27/20 07:35 37.0 C 69 16 135/87 94 Laboratory Results 02/27/20 02/27/20 Range/Units 06:09 06:09 WBC 5.84 (4.8-10.8) K/uL RBC 3.70 L (4.2-5.4) M/uL Hgb 12.0 (12.0-16.0) g/dL Hct 36.3 L (37-47) % MCV 98.1 (80-100) fL MCH 32.4 (25-34) pg MCHC 33.1 (32-36) g/dL RDW Std Deviation 54.6 H (36.4-46.3) fL RDW Coeff of Asael 15.3 H (11.5-14.5) % Plt Count 320 (130-400) K/uL MPV 10.9 H (7.4-10.4) fL Immature Gran % (Auto) 0.3 % Neut % (Auto) 66.3 % Lymph % (Auto) 18.2 % [place] % (Auto) 12.2 % Eos % (Auto) 2.7 % Baso % (Auto) 0.3 % Neut # (Auto) 3.87 (1.4-6.5) K/uL Lymph # (Auto) 1.06 L (1.2-3.4) K/uL [place] # (Auto) 0.71 H (0.11-0.59) K/uL Eos # (Auto) 0.16 (0-0.5) K/uL Baso # (Auto) 0.02 (0-0.2) K/uL Immature Gran # (Auto) 0.02 (0.00-0.02) K/uL Sodium 134 L (136-145) mmol/L Potassium 4.1 (3.5-5.1) mmol/L Chloride 100 (98-107) mmol/L Carbon Dioxide 29 (21-32) mmol/L Anion Gap 5.0 (3-11) BUN 11 (7-18) mg/dl Creatinine 0.78 (0.6-1.2) mg/dl Est Cr Clr Drug Dosing 36.4 ml/min Est GFR ( Amer) 79.8 Est GFR (Non-Af Amer) 68.8 BUN/Creatinine Ratio 13.6 (10-20) Glucose 137 H (70-99) mg/dl Calcium 9.3 (8.5-10.1) mg/dl Total Bilirubin 6.4 H (0.2-1) mg/dl Direct Bilirubin 5.7 H (0-0.2) mg/dl AST 263 H (15-37) U/L ALT 317 H (12-78) U/L Alkaline Phosphatase 769 H (45-117) U/L Total Protein 5.5 L (6.4-8.2) gm/dl Albumin 2.4 L (3.4-5.0) gm/dl PG Care Time/CCT Total # of Minutes Spent Total Time Spent with Patient: Total time spent is greater than 50% in coordination of care (as documented) at patient's floor/unit and/or counseling patient: Coding Level of Care Code 96391 Subseq Hosp Care Lvl 2 Diagnoses Abdominal pain R10.13 Abdominal location: epigastric Primary adenocarcinoma of head of pancreas C25.0 Elevated LFTs R79.89 Impaired fasting glucose R73.01 Depression F32.9 Active/Remission status: remission status unspecified Depression Type: major depressive disorder Major depression recurrence: unspecified whether recurrent HTN (hypertension) I10 Hypertension type: essential hypertension Hyperlipidemia E78.5 Hyperlipidemia type: unspecified CKD (chronic kidney disease) stage 3, GFR 30-59 ml/min N18.3 GERD (gastroesophageal reflux disease) K21.9 Esophagitis presence: esophagitis presence not specified Hyponatremia E87.1 UTI (urinary tract infection) N39.0 Hematuria presence: without hematuria Urinary tract infection type: site unspecified (1) UTI (urinary tract infection) Hematuria presence: without hematuria Urinary tract infection type: site unspecified Qualified Code(s): N39.0 - Urinary tract infection, site not specified (2) Depression Active/Remission status: remission status unspecified Depression Type: major depressive disorder Major depression recurrence: unspecified whether recurrent Qualified Code(s): F32.9 - Major depressive disorder, single episode, unspecified (3) Hyperlipidemia Hyperlipidemia type: unspecified Qualified Code(s): E78.5 - Hyperlipidemia, unspecified (4) GERD (gastroesophageal reflux disease) Esophagitis presence: esophagitis presence not specified Qualified Code(s): K21.9 - Gastro-esophageal reflux disease without esophagitis (5) Abdominal pain Abdominal location: epigastric Qualified Code(s): R10.13 - Epigastric pain (6) HTN (hypertension) Hypertension type: essential hypertension Qualified Code(s): I10 - Essential (primary) hypertension
[2020-02-27] MEDS: TOLTERODINE TARTRATE LA 2 MG CAPCR PO SCH (21:44)
[2020-02-28] MEDS: cefTRIAXone SODIUM 1,000 MG in DEXTROSE 5% 50 ML IV SCH (05:10)
[2020-02-28 06:11] LABS: Basophils # (auto) 0.02 K/uL (0-0.2); Basophils % (auto) 0.3 %; Eosinophils # (auto) 0.12 K/uL (0-0.5); Eosinophils % (auto) 1.8 %; Hematocrit (blood only) 37.5 % (37-47); Hemoglobin 12.6 g/dL (12.0-16.0); Immature Granulocytes # (auto) 0.02 K/uL (0.00-0.02); Immature Granulocytes % (auto) 0.3 %; Lymphocytes # (auto) 1.28 K/uL (1.2-3.4); Lymphocytes % (auto) 19.6 %; Mean Corpuscular Hemoglobin 33.1 pg (25-34); Mean Corpuscular Hgb Conc 33.6 g/dL (32-36); Mean Corpuscular Volume 98.4 fL (80-100); Mean Platelet Volume 11.8 fL (7.4-10.4); Monocytes # (auto) 0.89 K/uL (0.11-0.59); Monocytes % (auto) 13.6 %; Neutrophils % (auto) 64.4 %; Platelet Count 351 K/uL (130-400); RDW Coefficient of Variation 15.2 % (11.5-14.5); RDW Standard Deviation 54.4 fL (36.4-46.3); Red Blood Count 3.81 M/uL (4.2-5.4); White Blood Count 6.53 K/uL (4.8-10.8)
[2020-02-28 06:57] LABS: Albumin Level 2.5 gm/dl (3.4-5.0); BUN Creatinine Ratio 15.3 (10-20); Bilirubin Direct 5.6 mg/dl (0-0.2); Bilirubin,Total 7.1 mg/dl (0.2-1); Calcium 8.7 mg/dl (8.5-10.1); Creatinine Clr Calc Pharmacy 35.1 ml/min; Est GFR (African American) 76.2; Est GFR (Non-African American) 65.8; Potassium 4.1 mmol/L (3.5-5.1); Total Protein 5.5 gm/dl (6.4-8.2)
[2020-02-28] MEDS: METOPROLOL TARTRATE 25 MG TAB PO SCH (08:55)
[2020-02-28] MEDS: PANTOprazole 40 MG TAB PO SCH (08:56)
[2020-02-28] MEDS: ENOXAPARIN INJ 40 MG/0.4 ML SYR SQ SCH (08:56)
[2020-02-28] MEDS: ESCITALOPRAM OXALATE 10 MG TAB PO SCH (08:56)
[2020-02-28] MEDS: TIMOLOL MALEATE 0.5% OP SOLN 5 ML BTL OP SCH (08:56)
--- NOTE | 2020-02-28 09:30 | Gastrointestinal Consultation ---
Date of Consultation February 28, 2020 Assessment & Plan (1) Elevated LFTs: 84 year old female with history of hypothyroidism, GERD, s/p right total knee, pancreatic head adenocarcinoma well differentiated who has deferred therapy who presented through the ED for evaluation of abdominal pain, nausea which has since resolved. She has newly obstructive type liver enzymes w/ large pancreatic head mass with encasement of the superior mesenteric artery and secondary glandular atrophy and ductal dilatation, dilated stomach and duodenum concerning for outlet obstruction at the level the transverse duodenum. Presently she is pain free, tolerating PO intake. I discussed with her the findings on CT and her blood work. I recommended diagnostic endoscopy for evaluation, she has deferred this. I then had a discussion regarding her goals of care - she tells me she does not wish to undergo any procedures at this time. - Agree with palliative care consultation - I asked her to reconsider diagnostic/therapeutic EGD - KUB today - If persistent distention consider NG for decompression - Antiemetics PRN - Analgesia PRN Thank you for allowing us to participate in the care of this patient. Please call with any acute changes, questions or concerns. Please see addendum below with additional recommendation from my supervising physician. (2) Primary adenocarcinoma of head of pancreas: Supervising Physician Co-Signing Physician Notes I have personally seen and examined the patient with JULIA Walker. Her note reflects my exam and findings. I agree with her impression and plan. Patient desires no invasive procedures and palliative care. I concur with patient's decision. Patrick Davenport M.D. History of Present Illness Reason for Consultation: pancreatic CA, GOO Requesting Physician: Floyd Attending Physician: Yovani Barrientos, DO History of Present Illness 84 year old female with history of hypothyroidism, GERD, s/p right total knee, pancreatic head adenocarcinoma well differentiated who has deferred therapy who presented through the ED for evaluation of abdominal pain, nausea - GI asked to evaluate given abnormal CT. Pt was seen and evaluated, chart reviewed. She endorses chronic abd pain x 6 months which lead to diagnosis of pancreatic CA. Notes that this pain had worsened about 72 hours ago and was associated w/ nausea but no vomiting. In the ED, labs were notable for obstructive type liver enzymes TB 7, AST 241, ALT 312, ALK 839 which is new from [facility] labs in late January 2020. CT showed large pancreatic head mass, dilated stomach and duodenum w/ suspected obstruction at the transverse duodenum. This AM, upon GI evaluate she has completed regular breakfast tray. Is feeling well. Abd pain has actually improved since admission. No nausea/vomiting. No GERD. Moving bowels. No black or bloody stools CTAP 2019: Large pancreatic head mass with encasement of the superior mesenteric artery and secondary glandular atrophy and ductal dilatation 2. Dilated stomach and duodenum. Obstruction at the level the transverse duodenum due to the large pancreatic mass must be considered. 3. Hiatal hernia with a paraesophageal component 4. Marked intrahepatic biliary ductal dilatation 5. Diffuse colonic wall thickening EUS 2019: 4 cm mass of pancreatic head, T4, N1 mx Allergies Allergy/AdvReac Type Severity Reaction Status Date / Time Sulfa (Sulfonamide Allergy Unknown sweats - ? Verified 02/26/20 00:39 Antibiotics) can't remember Home Medications Home Medications Medication Instructions Recorded Confirmed Type cyclosporine 1 drp OPHTHALMIC (EYE) Q12H #0 10/08/11 02/26/20 History multivitamin 1 tab PO QAM #0 10/08/11 02/26/20 History [place]-3 1 tab PO QAM #0 01/19/18 02/26/20 History aspirin 81 mg PO QPM #0 01/19/18 02/26/20 History timolol 1 drp OPHTHALMIC (EYE) BID #0 01/19/18 02/26/20 History acetaminophen [Pain Reliever] 1,000 mg PO Q8 #180 tab 02/25/18 02/26/20 Rx escitalopram oxalate 10 mg tablet 10 mg PO QAM #90 tab 03/30/19 02/26/20 Rx metoprolol tartrate 25 mg tablet 25 mg PO BID #180 tab 03/30/19 02/26/20 Rx tolterodine 2 mg capsule,extended 2 mg PO HS 90 Days #90 cap 03/30/19 02/26/20 Rx release 24 hr cholecalciferol (vitamin D3) 50 2,000 units PO DAILY #30 cap 04/16/19 02/26/20 Rx mcg (2,000 unit) capsule loperamide [Imodium] 2 mg PO DIRECTED PRN 02/26/20 02/26/20 History omeprazole 20 mg PO DAILY 02/26/20 02/26/20 History Patient History Medical History (Updated 02/28/20 @ 06:40 by Ang Green MD) CKD (chronic kidney disease) stage 3, GFR 30-59 ml/min Degenerative disc disease GERD (gastroesophageal reflux disease) Hiatal hernia History of fracture of patella Hx of cataract Lichen sclerosus et atrophicus Low back pain Macular degeneration Metabolic encephalopathy Pneumonia Primary adenocarcinoma of head of pancreas Surgical History H/O colonoscopy History of lumbar laminectomy History of total knee arthroplasty RIGHT-- 07/16/16 at [facility], SAB and regional block without issues Hx of hysterectomy Hx of repair of rotator cuff BOTH Total knee replacement status Family History Sister Breast cancer Brother Colon cancer Prostate cancer Father Myocardial infarction Denies family history of Ovarian cancer Social History Smoking Status: Never smoker Second Hand Exposure: No; Hx Alcohol Use: No Hx Substance Use: No Preferred Language: Armenian Communication Ability: Effective Visual Impairment: No Limitations Beliefs That Will Affect Care: None marital status: / Current Living Situation: Alone Current Living Situation Comment: family close to check in per daughter current occupational status: retired Feels Safe at Home: Yes caffeine: No Dental Care, Regularly: No Physical Activity Frequency: Does not Exercise Seatbelt Use: always Sunscreen Use: Yes Review of Systems Constitutional: + anorexia and + weight loss; no fever and no chills Respiratory: no cough Cardiovascular: no chest pain Gastrointestinal: + bloating and + early satiety; no abdominal pain, no nausea, no blood in stools and no melena Physical Exam Constitutional: + ill appearing (jaundice) and + thin Neck: trachea midline Respiratory: normal respiratory effort Cardiovascular: Rate/Rhythm: regular rate Gastrointestinal (Abdomen): Percussion/Palpation: abdomen soft; abdomen nontender, no guarding and abdomen not rigid Skin: + jaundice Results & Data ([facility]) Vital Signs (Past 12 Hours) Vital Signs Temp Pulse Resp BP Pulse Ox 02/28/20 07:12 36.3 C L 67 16 131/89 97 02/27/20 23:51 36.5 C 61 16 117/72 95 02/27/20 21:53 36.5 C 63 18 123/84 96 Laboratory Results 02/28/20 02/28/20 Range/Units 05:07 05:07 WBC 6.53 (4.8-10.8) K/uL RBC 3.81 L (4.2-5.4) M/uL Hgb 12.6 (12.0-16.0) g/dL Hct 37.5 (37-47) % MCV 98.4 (80-100) fL MCH 33.1 (25-34) pg MCHC 33.6 (32-36) g/dL RDW Std Deviation 54.4 H (36.4-46.3) fL RDW Coeff of Asael 15.2 H (11.5-14.5) % Plt Count 351 (130-400) K/uL MPV 11.8 H (7.4-10.4) fL Immature Gran % (Auto) 0.3 % Neut % (Auto) 64.4 % Lymph % (Auto) 19.6 % [place] % (Auto) 13.6 % Eos % (Auto) 1.8 % Baso % (Auto) 0.3 % Neut # (Auto) 4.20 (1.4-6.5) K/uL Lymph # (Auto) 1.28 (1.2-3.4) K/uL [place] # (Auto) 0.89 H (0.11-0.59) K/uL Eos # (Auto) 0.12 (0-0.5) K/uL Baso # (Auto) 0.02 (0-0.2) K/uL Immature Gran # (Auto) 0.02 (0.00-0.02) K/uL Sodium 130 L (136-145) mmol/L Potassium 4.1 (3.5-5.1) mmol/L Chloride 96 L (98-107) mmol/L Carbon Dioxide 29 (21-32) mmol/L Anion Gap 5.0 (3-11) BUN 12 (7-18) mg/dl Creatinine 0.81 (0.6-1.2) mg/dl Est Cr Clr Drug Dosing 35.1 ml/min Est GFR ( Amer) 76.2 Est GFR (Non-Af Amer) 65.8 BUN/Creatinine Ratio 15.3 (10-20) Glucose 161 H (70-99) mg/dl Calcium 8.7 (8.5-10.1) mg/dl Total Bilirubin 7.1 H (0.2-1) mg/dl Direct Bilirubin 5.6 H (0-0.2) mg/dl AST 241 H (15-37) U/L ALT 312 H (12-78) U/L Alkaline Phosphatase 839 H (45-117) U/L Total Protein 5.5 L (6.4-8.2) gm/dl Albumin 2.5 L (3.4-5.0) gm/dl
[2020-02-28] MEDS: ALUMINUM/MAGNESIUM SUSP 30 ML UDC PO PRN (14:44)
--- NOTE | 2020-02-28 15:27 | Palliative Care Consultation ---
Date of Consultation February 28, 2020 Assessment & Plan (1) Goals of care, counseling/discussion: Patient is an 84-year-old female with a past medical history significant for CKD, GERD and memory loss who is brought to the emergency room on 02/25 for abdominal pain with nausea-patient was noted to be jaundiced with a bilirubin of 7.4. Patient also had a UA suggestive of a UTI-and was started on IV Rocephin. -Patient diagnosed with pancreatic cancer involving the head of the pancreas ap proximately 6 months ago per patient-patient declined any surgery or chemo. -Patient presented with obstructive symptoms-declined further intervention. -Patient's abdominal pain and nausea have subsided-patient reports it is intermittent-discussed dietary changes such as small frequent meals and meals particularly low in fat. -Patient reports decreased appetite, thinks she has lost approximately 40 pounds since diagnosis. -Patient's current CODE STATUS is DNR -Spoke with patient's son, Garfield, , by phone discussed when it would be appropriate to consult hospice. Also reviewed dietary changes that may assist with abdominal pain. If patient's pain becomes more intense or more frequent-this would be a good time to consult hospice. -Patient lives alone, she had 4 children, she lost 1 son at age 15 to an MVA, she has 2 daughters and 1 son that all live nearby and are able to assist with her care. -Patient reports she is still able to cook for herself, do some of her shopping and cleaning her own home, her children do assist when needed. -PPS 60% (2) Abdominal pain: Intermittent, likely related to her pancreatic cancer. Recommend small frequent meals low in fat Abdominal location: unspecified location Qualified Code(s): R10.9 - Unspecified abdominal pain (3) Primary adenocarcinoma of head of pancreas: Patient refusing any aggressive treatment or intervention (4) Weight loss: Due to decreased appetite as well as pancreatic cancer (5) Jaundice: Likely contributing to her memory deficits, likely due to obstruction from her pancreatic cancer (6) UTI (urinary tract infection): May be contributing to some of her mild confusion Urinary tract infection type: site unspecified Hematuria presence: without hematuria Qualified Code(s): N39.0 - Urinary tract infection, site not specified History of Present Illness Reason for Consultation: Discuss goals of care Requesting Physician: Dr. Veena Briceño Attending Physician: Yovani Barrientos, DO History of Present Illness Patient is an 84-year-old female with a past medical history significant for CKD, GERD and memory loss who is brought to the emergency room on 02/25 for abdominal pain with nausea-patient was noted to be jaundiced with a bilirubin of 7.4. Patient also had a UA suggestive of a UTI-and was started on IV Rocephin. -Patient diagnosed with pancreatic cancer involving the head of the pancreas approximately 6 months ago per patient-patient declined any surgery or chemo. -Patient presented with obstructive symptoms-declined further intervention. -Patient's abdominal pain and nausea have subsided-patient reports it is intermittent-discussed dietary changes such as small frequent meals and meals particularly low in fat. -Patient reports decreased appetite, thinks she has lost approximately 40 pounds since diagnosis. -Patient's current CODE STATUS is DNR -Spoke with patient's son, Garfield, , by phone discussed when it would be appropriate to consult hospice. Also reviewed dietary changes that may assist with abdominal pain. If patient's pain becomes more intense or more frequent-this would be a good time to consult hospice. -Patient lives alone, she had 4 children, she lost 1 son at age 15 to an MVA, she has 2 daughters and 1 son that all live nearby and are able to assist with her care. -Patient reports she is still able to cook for herself, do some of her shopping and cleaning her own home, her children do assist when needed. -PPS 60% Allergies Allergy/AdvReac Type Severity Reaction Status Date / Time Sulfa (Sulfonamide Allergy Unknown sweats - ? Verified 02/26/20 00:39 Antibiotics) can't remember Home Medications Home Medications Medication Instructions Recorded Confirmed Type cyclosporine 1 drp OPHTHALMIC (EYE) Q12H #0 10/08/11 02/26/20 History multivitamin 1 tab PO QAM #0 10/08/11 02/26/20 History [place]-3 1 tab PO QAM #0 01/19/18 02/26/20 History aspirin 81 mg PO QPM #0 01/19/18 02/26/20 History timolol 1 drp OPHTHALMIC (EYE) BID #0 01/19/18 02/26/20 History acetaminophen [Pain Reliever] 1,000 mg PO Q8 #180 tab 02/25/18 02/26/20 Rx escitalopram oxalate 10 mg tablet 10 mg PO QAM #90 tab 03/30/19 02/26/20 Rx metoprolol tartrate 25 mg tablet 25 mg PO BID #180 tab 03/30/19 02/26/20 Rx tolterodine 2 mg capsule,extended 2 mg PO HS 90 Days #90 cap 03/30/19 02/26/20 Rx release 24 hr cholecalciferol (vitamin D3) 50 2,000 units PO DAILY #30 cap 04/16/19 02/26/20 Rx mcg (2,000 unit) capsule loperamide [Imodium] 2 mg PO DIRECTED PRN 02/26/20 02/26/20 History omeprazole 20 mg PO DAILY 02/26/20 02/26/20 History Patient History Medical History CKD (chronic kidney disease) stage 3, GFR 30-59 ml/min Degenerative disc disease GERD (gastroesophageal reflux disease) Hiatal hernia History of fracture of patella Hx of cataract Lichen sclerosus et atrophicus Low back pain Macular degeneration Metabolic encephalopathy Pneumonia Primary adenocarcinoma of head of pancreas Surgical History H/O colonoscopy History of lumbar laminectomy History of total knee arthroplasty RIGHT-- 07/16/16 at [facility], SAB and regional block without issues Hx of hysterectomy Hx of repair of rotator cuff BOTH Total knee replacement status Family History Sister Breast cancer Brother Colon cancer Prostate cancer Father Myocardial infarction Denies family history of Ovarian cancer Social History Smoking Status: Never smoker Second Hand Exposure: No; Hx Alcohol Use: No Hx Substance Use: No Preferred Language: Kazakh Communication Ability: Effective Visual Impairment: No Limitations Beliefs That Will Affect Care: None marital status: / Current Living Situation: Alone Current Living Situation Comment: family close to check in per daughter current occupational status: retired Feels Safe at Home: Yes caffeine: No Dental Care, Regularly: No Physical Activity Frequency: Does not Exercise Seatbelt Use: always Sunscreen Use: Yes Review of Systems Review of Systems: Patient denies fever, chills, chest pain, shortness of breath, or abdominal pain Positive for weight loss Physical Exam Physical Exam: PE: Patient awake and alert, no acute distress HEENT: EOMI, hearing within normal limits Respirations: Unlabored, clear breath sounds CV: Regular rate, no edema Abdomen: Slightly distended, positive bowel sounds, nontender on palpation Extremities: Full range of motion Skin: Mild jaundice Neuro: Alert and oriented, positive memory deficits Results & Data ([facility]) Vital Signs (Past 12 Hours) Vital Signs Temp Pulse Resp BP Pulse Ox 02/28/20 15:18 97.5 F L 88 14 110/67 96 02/28/20 07:12 97.3 F L 67 16 131/89 97 PG Care Time/CCT Total # of Minutes Spent Total Time Spent with Patient: Total time spent 55 minutes with greater than 50% that time spent at bedside discussing goals of care as well as discussing hospice referral with son by phone. Coding Level of Care Code 43713 Inpt Consult Level 2 Diagnoses Goals of care, counseling/discussion Z71.89 Abdominal pain R10.9 Abdominal location: unspecified location Primary adenocarcinoma of head of pancreas C25.0 Weight loss R63.4 Jaundice R17 UTI (urinary tract infection) N39.0 Urinary tract infection type: site unspecified Hematuria presence: without hematuria Time Spent (min) 55
--- NOTE | 2020-02-28 16:11 | Discharge Summary ---
Date of Service February 28, 2020 Admission HPI Per Admitting Provider Celeste Heck is an 84yo C female with history of pancreatic adenocarcinoma, HTN, HLP, GERD presenting with abdominal pain. Pain is central/epigastric burning ongoing x 3 days. She has mild nausea with one episode of vomiting. Patient had ongoing diarrhea for the last 7 months however, that has decreased. Last BM was yesterday. Decreased PO but patient is able to tolerate oral intake at this time. Diffuse abdominal pain at baseline with radiation to the back - Tylenol at home with some relief. No additional complaints at this time. Patient denies fevers/chills/dysuria. Patient is well aware of her diagnosis of pancreatic cancer and the poor prognosis of this disease. She does not wish to pursue aggressive therapies. Daughter is at bedside. ER Course: Maalox, Dilaudid 0.25mg, Reglan 5mg IV, Protonix 40mg IV, NSS 500mL Principal Diagnosis Abdominal pain Discharge Exam Constitutional WD/WN, vitals as above Respiratory normal respiratory effort, lungs clear to auscultation Cardiovascular RRR, no murmur, no edema Gastrointestinal (Abdomen) normal bowel sounds, soft, nontender, no hepatosplenomegaly Musculoskeletal no cyanosis or clubbing, extremities motor strength 5/5 Skin + jaundice Neurologic moves all extremities and awake Psychiatric A+Ox3, euthymic affect Discharge Data Allergies Allergy/AdvReac Type Severity Reaction Status Date / Time Sulfa (Sulfonamide Allergy Unknown sweats - ? Verified 02/26/20 00:39 Antibiotics) can't remember Consultations 02/26/20 00:33 ED Decision to Admit Stat 02/26/20 04:25 Consult Case Management - Discharge Planning Routine Consult Palliative Care Routine 02/27/20 14:36 Consult Gastroenterology Routine Ordered Studies 02/25/20 23:14 CT abd pelvis IV con only Urgent Hospital Course (1) Abdominal pain: Patient with 3 days of worsening epigastric discomfort, similar to heartburn symptoms. Imaging suggestive of progression of pancreatic malignancy and possible duodenum obstruction. Improved now, no further pain and not requiring narcotics for pain control Now pain controlled for most part with Tylenol alone Some intermittent nausea but moving bowels and pain improved -started oxycodone prn so she can take this at home-she already has a Rx from her Oncologist, but has not taken a dose here yet -continue tylenol prn -bowels are moving -likely from pancreatic CA with large mass encasing SMA, possible dudenal obstruction -she does not want to be aggressive with intervention - declines endoscopy for further workup -Palliative Consult placed - recommends small frequent low fat meals (2) 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 Patient does not wish to pursue aggressive measures. Discussed Palliative Care, possible hospice services with patient. She was in terested in speaking with the Palliative team. -Palliative care consultation appreciated - patient does not think she needs hospice at this point as she can do most of her self care and her pain is now under control. She does not wish to return to the hospital however. Palliative care discussed increased help from her children with her son and they are planning to do so. Palliative care discussed with patient's son when to get palliative care involved -Daughter POC - Olamide - [phone] -has declined chemotherapy and follows with Dr. Chaparro of [facility] (3) Elevated LFTs: Obstructive picture , secondary to mass slightly improved today (4) Impaired fasting glucose: Elevated blood sugar in setting of pancreatic cancer -Noted -Continue to monitor nothing to do (5) Depression: Chronic -Continue Lexapro (6) HTN (hypertension): Blood pressure stable -Continue Metoprolol 25mg po BID -Continue to monitor (7) Hyperlipidemia: Chronic -Hold Friendship 3 for now (8) CKD (chronic kidney disease) stage 3, GFR 30-59 ml/min: Elevated BUN=21, Cr near baseline. Patient reports adequate UOP, electrolytes are reasonable -Avoid nephrotoxic agents (9) GERD (gastroesophageal reflux disease): Patient with epigastric pain as above -Protonix 40mg IV daily was given and then converted to po PPI -Maalox PRN (10) Hyponatremia: [id number] on admission and initially improved but now 130, likely due to poor po intake. Liberalize sodium intake encouraged po intake - per palliative care, encourage small frequent meals. (11) UTI (urinary tract infection): +UA -Ceftriaxone Ur cx with MDR E. coli - will send home with cefdinir for a total of 7 days of treatment Patient's wish at this time is to go home and she declines further workup. She doesn't think she needs hospice services just yet. We did discuss reaching out to them if her pain is starting to be frequent but at the moment she is feeling comfortable. I talked with her daughter who understands her mother is declining. We discussed balancing pain control with mental clarity when using narcotics for pain management. We also discussed that patient will likely become more confused as her disease progresses. Her daughter reports that the family is prepared to offer increased support to her mother as her needs increased. They will also use [facility] home health so that they can transition to hospice when necessary. Total Time Total Time Spent Total Time Spent (In Minutes): greater than 30 minutes Discharge Plan Discharge Items Patient Disposition: Home - Self-Care Reason For Visit: ABDOMINAL PAIN Discharge Diagnosis: abdominal pain Activity: Resume your previous activity Non-emergency contact: Primary Care Provider Call non-emergency contact if: you have any medication questions Follow-up/Referrals: Velma Garces CRNP [Primary Care Provider] - (follow up 1 week ) Diet: Low Fat Diet Comment: small frequent meals with liberal salt intake Addtl Attending Provider Instructions: (1) Abdominal pain: -You can use the oxycodone prescribed by your oncologist for pain if tylenol is not helping -Small, frequent, low fat meals (2) 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 Per your wishes, no invasive workup or procedures will be performed. (3) Hyponatremia: Your sodium was a bit low today at 130. Please try to liberalize your salt intake to keep this level higher. When sodium is low it can make you feel weak or dizzy so it may help you to feel better if you are taking in more sodium in yoiur diet (4) UTI (urinary tract infection): You will return home with cefdinir to treat this for 4 more days. You should start the cefdinir first thing tomorrow morning Pending Studies at Discharge: No Stand-Alone Forms: [facility] [employer], Smoking Cessation Medications and DC Order Prescriptions: New cefdinir 300 mg capsule 300 mg PO BID 4 Days Qty: 8 RF: 0 Continued multivitamin Tablet 1 tab PO QAM Qty: 0 RF: 0 cyclosporine 0.05 % Dropperette 1 drp OPHTHALMIC (EYE) Q12H Qty: 0 RF: 0 timolol 0.5 % Drops 1 drp OPHTHALMIC (EYE) BID Qty: 0 RF: 0 aspirin 81 mg Tablet,Chewable 81 mg PO QPM Qty: 0 RF: 0 Friendship-3 350 mg-235 mg- 90 mg-597 mg Capsule,Delayed Release(Dr/Ec) 1 tab PO QAM Qty: 0 RF: 0 escitalopram oxalate 10 mg tablet 10 mg PO QAM Qty: 90 RF: 3 metoprolol tartrate 25 mg tablet 25 mg PO BID Qty: 180 RF: 3 tolterodine 2 mg capsule,extended release 24hr 2 mg PO HS 90 Days Qty: 90 RF: 3 cholecalciferol (vitamin D3) 2,000 unit capsule 2,000 units PO DAILY Qty: 30 RF: 0 loperamide 2 mg Capsule 2 mg PO DIRECTED PRN (Reason: Diarrhea) RF: 0 omeprazole 20 mg capsule,delayed release(DR/EC) 20 mg PO DAILY RF: 0 acetaminophen [Pain Reliever] 500 mg Tablet 1,000 mg PO Q8 Qty: 180 RF: 0 Discharge Orders: Discharge Order (Routine); Ordered 02/28/20 Ordered By: Cherelle Barrera Admission Data Admit Date/Time: 02/26/20 02:43 Attending Provider: Yovani Barrientos Admit Provider: Veena Briceño Primary Care Provider: Velma Garces. Other Providers: Veena Briceño ; Ghazala Aguila ; Pratima Zafar ; [facility],Home Healthcare Other Interventions: Discharge Summary Assessment (RN) Last Done: 02/28/20 16:42 Supervising Physician Co-Signing Physician Notes Patient seen and examined on the day of discharge. I agree with the discharge summary by Cherelle DUMONT. I have reviewed the chart including labs, imaging and plans for discharge. patient sitting up in her chair, no distress at all, she tolerated her diet, no vomiting she is firm in her decision to go home, she does NOT want any type of testing she specifically refuses an EGD even for diagnostic purposes appreciate consultation from Dr. Cheng, she spoke with family about home health, transitioning to hospice - Pancreatic cancer causing obstruction, jaundice, possible gastric outlet obstruction due to compression of duodenum patient is pain free, tolerated diet, no vomiting she does not want further work up she will continue to eat as tolerated she can transition to hospice at home Coding Level of Care Code D/C Day Management >30 mins Diagnoses Abdominal pain R10.9 Abdominal location: unspecified location Primary adenocarcinoma of head of pancreas C25.0 Elevated LFTs R79.89 Impaired fasting glucose R73.01 Depression F32.9 Active/Remission status: remission status unspecified Depression Type: major depressive disorder Major depression recurrence: unspecified whether recurrent HTN (hypertension) I10 Hypertension type: essential hypertension Hyperlipidemia E78.5 Hyperlipidemia type: unspecified CKD (chronic kidney disease) stage 3, GFR 30-59 ml/min N18.3 GERD (gastroesophageal reflux disease) K21.9 Esophagitis presence: esophagitis presence not specified Hyponatremia E87.1 UTI (urinary tract infection) N39.0 Hematuria presence: without hematuria Urinary tract infection type: site unspecified
== END 2020-02-28 17:50 | disposition home health service (06) | DRG 436 ==
LOC: ED 23:05 → SUATTDRO 02-26 02:43 → 3W 02-26 02:43